=== PATIENT | female | born 1965 | race Two or more races ===

== ENCOUNTER 2025-08-02 04:54 | Inpatient (IN) | payer MEDICAID, OTHER ==
[~2025-08-02] VITALS: Ht 167.6 cm; Wt 66.7 kg
--- NOTE | 2025-08-02 05:19 | ED.PDOC ---
GI ASSESSMENT HPI Comments 60-year-old female with a history of previous bowel obstruction and bowel perforation now complains of dull aching bilateral abdominal pain radiating to bilateral flanks for the last 3 days. Patient reports nausea. No vomiting. Patient reports passing gas but has not had a bowel movement in several days to week. Chief Complaint: Flank Pain Time Seen by MD: 05:08 Allergies: Coded Allergies: NO KNOWN ALLERGIES (Unverified , 08/02/25) Information Source: Patient Mode of Arrival: Ambulatory Timing: Days Duration: Since onset Quality: Aching, Sharp Severity: Moderate, Severe Pain Location: RLQ, LLQ, Periumbilical Associated sign and symptoms: Nausea, Constipation Past Medical History Past Medical History (Other): Previous bowel obstructions Surgical History (Other): Prior intestinal perforation and bowel obstruction Social History Smoker: Non-Smoker Alcohol: Denies ETOH Use Drugs: Marijuana Constitutional: reports: malaise Gastrointestinal: reports: abdominal pain, constipated, nausea All Other Systems: Reviewed and Negative Physical Exam General Appearance: Moderate Distress HEENT: Normal ENT Inspection, Pharynx Normal, TMs Normal Neck: Full Range of Motion, Non-Tender, Normal, Normal Inspection Respiratory: Chest Non-Tender, Lungs Clear, No Accessory Muscle Use, No Respiratory Distress, Normal Breath Sounds Cardiovascular: No Edema, No JVD, No Murmur, No Gallop, Normal Peripheral Pulses, Regular Rate/Rhythm Breast Exam: Deferred Gastrointestinal: Soft, Tenderness Genitalia: Deferred Pelvic: Deferred Rectal: Deferred Extremities: No calf tenderness, Normal capillary refill, Normal inspection, Normal range of motion, Non-tender, No pedal edema Musculoskeletal : Apperance: Normal Neurologic: Alert, copywriter II-XII nml as Tested, No Motor Deficits, Normal Affect, Normal Mood, No Sensory Deficits Cerebellar Function: Normal Reflexes: Normal Skin: Dry, Normal Color, Warm Lymphatic: No Adenopathy Was a procedure done? Was a procedure done?: No GI differential Dx Differential Diagnosis: Diverticular disease, Gastritis/PUD, Gastroenteritis, GI hemorrhage, Dehydration, Kidney Stone, Other X-Ray, Labs, Meds, VS Vital Signs Date Time Temp Pulse Resp B/P (MAP) Pulse Ox O2 Delivery O2 Flow Rate FiO2 08/02/25 04:54 98.1 71 18 129/83 95 98.1 Lab Test 08/02/25 07:06 Range/Units White Blood Count 6.4 4.4-10.8 10^3/uL Red Blood Count 3.83 L 4.0-5.20 10^6/uL Hemoglobin 12.0 L 12.2-16.2 g/dL Hematocrit 35.6 L 36.0-46.0 % Mean Corpuscular Volume 93.0 80.0-100.0 fL Mean Corpuscular Hemoglobin 31.3 28.0-32.0 pg Mean Corpuscular Hemoglobin Concent 33.7 32.0-36.0 g/dL Red Cell Distribution Width 12.4 11.8-14.3 % Platelet Count 236 140-450 10^3/uL Mean Platelet Volume 7.4 6.9-10.8 fL Neutrophils (%) (Auto) 50.1 37.0-80.0 % Lymphocytes (%) (Auto) 34.6 10.0-50.0 % Monocytes (%) (Auto) 9.9 0.0-12.0 % Eosinophils (%) (Auto) 4.7 0.0-7.0 % Basophils (%) (Auto) 0.7 0.0-2.0 % Neutrophils # (Auto) 3.2 1.6-8.6 10 ^3/uL Lymphocytes # (Auto) 2.2 0.4-5.4 10 ^3/uL Monocytes # (Auto) 0.6 0-1.3 10 ^3/uL Eosinophils # (Auto) 0.3 0-0.8 10 ^3/uL Basophils # (Auto) 0 0-0.2 10 ^3/uL Nucleated Red Blood Cells 0.1 % Sodium Level 139 136-145 mmol/L Potassium Level 3.2 L 3.5-5.1 mmol/L Chloride Level 104 98-107 mmol/L Carbon Dioxide Level 25 20-31 mmol/L Anion Gap 10 5-15 Blood Urea Nitrogen 7 L 9-23 mg/dL Creatinine 0.91 0.550-1.02 mg/dL Glomerular Filtration Rate Calc 72 >90 mL/min BUN/Creatinine Ratio 7.7 L 10.0-20.0 Serum Glucose 93 74-106 mg/dL Calcium Level 9.6 8.7-10.4 mg/dL Total Bilirubin 0.6 0.2-1.0 mg/dL Aspartate Amino Transferase (AST) 23 13-40 U/L Alanine Aminotransferase (ALT) 20 7-40 U/L Alkaline Phosphatase 91 46-116 U/L Total Protein 7.4 5.7-8.2 g/dL Albumin 4.5 3.2-4.8 g/dL Lipase 42 12-53 U/L Time of 1ST Reevaluation: 05:19 Reevaluation 1ST: Unchanged Patient Education/Counseling: Diagnosis, Treatment Family Education/Counseling: No Family Present SEPSIS Sepsis Screen Date sepsis recognized/suspect: Aug 02, 2025 Time Sepsis recognized/suspect: 453 Recent Procedure: No On Antibiotic Therapy: No Respiratory Rate >20: No Heart Rate >90: No Temp<36 C (96.8 F) or >38.3 C: No SBP <90 or MAP <65 mmHG: No New Acute Mental Status Change: No Is the patient on CPAP, BIPAP,: No Physician Orders Urinalysis (08/02/25 05:09) Ct Ab Pel Wo Con-No Oral Or Iv (08/02/25 05:09) NS (08/02/25 08:00) Morphine Sulfate Injection (08/02/25 08:00) Ketorolac Injection (Toradol Injection) (08/02/25 08:00) Vital Signs Date Time Temp Pulse Resp B/P (MAP) Pulse Ox O2 Delivery O2 Flow Rate FiO2 08/02/25 04:54 98.1 71 18 129/83 95 98.1 Laboratory Tests Test 08/02/25 07:06 White Blood Count 6.4 10^3/uL (4.4-10.8) Departure 1 Departure Time of Disposition: 07:58 (Patient presented with abdominal pain that was concerning for possible appendicits, gastritis, cholecystitis, colitis, gastroenteritis, sbo, or orther possible surgical emergency. Data: 1. I ordered and reviewed the result of at least 3 labs including a CBC, BMP, and Urinalysis. 2. I independently interpreted the following tests: CT Abdomen and Pelvis is concerning for ureteral colic with hydronephrosis .Risk:This patient has a high risk of morbidity due to further diagnostic testing or treatment and may suffer from an acute abdominal process disorder. Workup reveals intractable abdominal pain, ureteral colic and hydronephrosis and patient should be admitted for further workup. and possible expert consultation. ) Impression: Primary Impression: Ureteral colic Additional Impressions: Hydronephrosis Qualified Codes: N13.2 - Hydronephrosis with renal and ureteral calculous obstruction Intractable abdominal pain Disposition: 09 ADMITTED INPATIENT Admit to: Med Surg Condition: Serious Critical Care Note Critical Care Time?: Yes Critical care comment: Intractable abdominal pain Authorized and Performed by: Elkin Webb MD Total critical care time: Approximately 38 minutes Due to a high probability of clinically significant, life threatening deterioration, the patient required my highest level of preparedness to intervene emergently and I personally spent this critical care time directly and personally managing the patient. This critical care time included obtaining a history; examining the patient; pulse oximetry; ordering and review of studies; arranging urgent treatment with development of a management plan; evaluation of patient's response to treatment; frequent reassessment; and, discussions with other providers. This critical care time was performed to assess and manage the high probability of imminent, life-threatening deterioration that could result in multi-organ failure. It was exclusive of separately billable procedures and treating other patients and teaching time. Please see my other sections and the rest of the note for further information on patient assessment and treatment. Stability Stability form required: No Heart Score Heart Score: Heart Score Response (Comments) Value History N/A 0 EKG N/A 0 Age N/A 0 Risk Factors N/A 0 Troponin N/A 0 Total 0 FELY BLAKELY MD Aug 02, 2025 05:19 ELKIN WEBB MD Aug 02, 2025 07:59
--- NOTE | 2025-08-02 05:46 | DVH ---
Exam: CT CT AB PEL WO CON-NO ORAL OR IV History: flank pain Comparison Study: None Technique: Multidetector spiral CT of the abdomen was performed from lung bases to pubic symphysis. I maging was performed without IV contrast. Axial, coronal and sagittal multiplanar reformats were obta ined from the axial data set by the technologist. Radiation Dose : 1. Abdomen/Pelvis: CTDIvol 5.07 mGy, DLP 254.36 mGy*cm. Findings: Evaluation of solid organs is limited due to lack of intravenous contrast use. Lung Bases: No acute or significant lung base finding. Normal heart size. No pleural or pericardial effusion. Liver: The liver is normal in size. No focal lesions. Gallbladder and Biliary Tree: Unremarkable Spleen: Unremarkable Pancreas: The pancreas is grossly normal in appearance. Adrenal Glands: Unremarkable Kidneys: [id number] left hydroureteronephrosis likely secondary to a distal ureterolith measuri ng a proximally 3 mm, just proximal to the ureterovesicular junction. No evidence of right nephrolith iasis or hydronephrosis. Bladder: Grossly unremarkable for degree of distention. Bowel: The stomach is grossly normal in appearance. Retained colorectal stool. Small bowel and colon are otherwise normal in caliber and distribution. The appendix is normal. Ascites: Absent Lymphadenopathy: No mesenteric, retroperitoneal or periportal lymphadenopathy. Abdominal Wall and Mesentery: Unremarkable. Vasculature: The visualized abdominal aorta is normal in size and caliber. Evaluation of abdominal a nd pelvic vessels is limited due to lack of intravenous contrast. Pelvic Organs: Unremarkable status post hysterectomy. Musculoskeletal: No aggressive focal bony lesions, acute fractures or dislocation. Hardware status po st L3 through S1 transforaminal lumbar interbody fusion. No evidence of hardware complication. IMPRESSION: 1. [id number] left hydroureteronephrosis likely secondary to a partially obstructing distal ure terolith just proximal to the level of the ureterovesicular junction. 2. Retained colorectal stool. Radiation optimization: All CT scans at this facility use at least one of these dose optimization meliton hniques: automated exposure control mA and/or kV adjustment per patient size (includes targeted exam s where dose is matched to clinical indication) or iterative reconstruction.
[2025-08-02 07:26] LABS: Hematocrit 35.6 % (36.0-46.0); Hemoglobin 12.0 g/dL (12.2-16.2); Mean Corpuscular Hemoglobin 31.3 pg (28.0-32.0); Mean Corpuscular Volume 93.0 fL (80.0-100.0); Nucleated Red Blood Cells % 0.1 %
[2025-08-02 07:43] LABS: Alanine Aminotransferase 20 U/L (7-40); Albumin 4.5 g/dL (3.2-4.8); Alkaline Phosphatase 91 U/L (46-116); Anion Gap 10 (5-15); BUN/Creatinine Ratio 7.7 (10.0-20.0); Bilirubin, Total 0.6 mg/dL (0.2-1.0); Calcium 9.6 mg/dL (8.7-10.4); Carbon Dioxide 25 mmol/L (20-31); Chloride 104 mmol/L (98-107); Glucose 93 mg/dL (74-106); Lipase 42 U/L (12-53); Sodium 139 mmol/L (136-145); Total Protein 7.4 g/dL (5.7-8.2)
[2025-08-02 07:44] LABS: Blood Urea Nitrogen 7 mg/dL (9-23); Potassium 3.2 mmol/L (3.5-5.1)
[2025-08-02] MEDS: SODIUM CHLORIDE 0.9% 1,000 ML IV ONE ×3 (08:19→08:30)
[2025-08-02] MEDS: KETOROLAC TROMETH 30 MG/ML 1ML VIAL IV ONE ×2 (08:23→15:15)
[2025-08-02] MEDS: ONDANSETRON HCL 4 MG/2 ML VIAL IV ONE (08:24)
[2025-08-02] MEDS: MORPHINE SULFATE 4 MG/ML SYR/VIAL IV ONE (08:25)
[2025-08-02] MEDS: TAMSULOSIN HYDROCHLORIDE 0.4 MG CAP PO ONE (08:25)
[2025-08-02 08:29] LABS: Urine Protein, UAD Negative (Negative)
[2025-08-02] MEDS ORDERED: ACETAMINOPHEN 325 MG TAB PO PRN (08:30)
[2025-08-02] MEDS ORDERED: ONDANSETRON HCL 4 MG/2 ML VIAL IV PRN ×2 (08:30→15:15)
[2025-08-02] MEDS: LACTULOSE 20Gm/30ML SOLN PO ONE (08:39)
[2025-08-02 08:41] VITALS: PULSE 84; RESP 20; O2SAT 96
[2025-08-02] MEDS ORDERED: LINA145C PO (08:45)
--- NOTE | 2025-08-02 09:06 | DVHINCON2 ---
Date of service: Aug 02, 2025 Reason for Consultation Ureteral colic History of Present Illness 60-year-old female with a history of previous bowel obstruction and bowel perforation now complains of dull aching bilateral abdominal pain radiating to bilateral flanks for the last 3 days. Patient reports nausea. No vomiting. Patient reports passing gas but has not had a bowel movement in several days to week. Chief Complaint: Flank Pain Allergies: Coded Allergies: NO KNOWN ALLERGIES (Unverified , 08/02/25) Information Source: Patient Mode of Arrival: Ambulatory Timing: Days Duration: Since onset Quality: Aching, Sharp Severity: Moderate, Severe Pain Location: RLQ, LLQ, Periumbilical Associated sign and symptoms: Nausea, Constipation Past Surgical History Previous bowel obstructions Surgical History (Other): Prior intestinal perforation and bowel obstruction Allergies: Coded Allergies: NO KNOWN ALLERGIES (Unverified , 08/02/25) Home Meds Reported Medications Linaclotide Base (LINZESS) 145 Mcg Cap, 1 CAP PO DAILY 08/02/25 Current Medications Current Medications Medications (Trade) Dose Ordered Sig/Karen Route PRN Reason Start Time Stop Time Status Last Admin Acetaminophen/ Hydrocodone Bitart (Davis 5/325MG Tab) 1 tab Q4HP PRN PO MODERATE PAIN (4-6 PAIN SCALE) 08/02/25 08:30 Ondansetron HCl (Zofran) 4 mg Q4HP PRN IV NAUSEA / VOMITING 08/02/25 08:30 Docusate Sodium (Colace Capsule) 100 mg BIDPRN PRN PO FOR CONSTIPATION 08/02/25 08:30 Acetaminophen (Tylenol Tablet) 650 mg Q6HP PRN PO PAIN SCALE 1-3 OR TEMP>100.4 08/02/25 08:30 Ketorolac Tromethamine (Toradol Injection) 15 mg Q6HPRN PRN IV SEVERE PAIN (7-10 PAIN SCALE) 08/02/25 08:30 08/07/25 08:29 Tamsulosin HCl (Flomax) 0.4 mg QPM PO 08/02/25 18:00 Alprazolam (Xanax Tablet) 0.5 mg Q8HPRN PRN PO ANXIETY 08/02/25 08:30 Patient Own Medication 1 cap DAILY PO 08/02/25 10:00 Review of Systems Constitutional: reports: malaise Gastrointestinal: reports: abdominal pain, constipated, nausea All Other Systems: Reviewed and Negative Vital Signs Vital Signs Date Time Temp Pulse Resp B/P (MAP) Pulse Ox O2 Delivery O2 Flow Rate FiO2 08/02/25 08:25 84 18 136/94 08/02/25 08:19 98 Room Air 08/02/25 04:54 98.1 98.1 Physical Exam General Appearance: Moderate Distress HEENT: Normal ENT Inspection, Pharynx Normal, TMs Normal Neck: Full Range of Motion, Non-Tender, Normal, Normal Inspection Respiratory: Chest Non-Tender, Lungs Clear, No Accessory Muscle Use, No Respiratory Distress, Normal Breath Sounds Cardiovascular: No Edema, No JVD, No Murmur, No Gallop, Normal Peripheral Pulses, Regular Rate/Rhythm Breast Exam: Deferred Gastrointestinal: Soft, Tenderness Genitalia: Deferred Pelvic: Deferred Rectal: Deferred Extremities: No calf tenderness, Normal capillary refill, Normal inspection, Normal range of motion, Non-tender, No pedal edema Musculoskeletal : Apperance: Normal Neurologic: Alert, manager training II-XII nml as Tested, No Motor Deficits, Normal Affect, Normal Mood, No Sensory Deficits Cerebellar Function: Normal Reflexes: Normal Skin: Dry, Normal Color, Warm Lymphatic: No Adenopathy Labs/Diagnostic Data Labs Test 08/02/25 07:06 08/02/25 06:28 Range/Units White Blood Count 6.4 4.4-10.8 10^3/uL Red Blood Count 3.83 L 4.0-5.20 10^6/uL Hemoglobin 12.0 L 12.2-16.2 g/dL Hematocrit 35.6 L 36.0-46.0 % Mean Corpuscular Volume 93.0 80.0-100.0 fL Mean Corpuscular Hemoglobin 31.3 28.0-32.0 pg Mean Corpuscular Hemoglobin Concent 33.7 32.0-36.0 g/dL Red Cell Distribution Width 12.4 11.8-14.3 % Platelet Count 236 140-450 10^3/uL Mean Platelet Volume 7.4 6.9-10.8 fL Neutrophils (%) (Auto) 50.1 37.0-80.0 % Lymphocytes (%) (Auto) 34.6 10.0-50.0 % Monocytes (%) (Auto) 9.9 0.0-12.0 % Eosinophils (%) (Auto) 4.7 0.0-7.0 % Basophils (%) (Auto) 0.7 0.0-2.0 % Neutrophils # (Auto) 3.2 1.6-8.6 10 ^3/uL Lymphocytes # (Auto) 2.2 0.4-5.4 10 ^3/uL Monocytes # (Auto) 0.6 0-1.3 10 ^3/uL Eosinophils # (Auto) 0.3 0-0.8 10 ^3/uL Basophils # (Auto) 0 0-0.2 10 ^3/uL Nucleated Red Blood Cells 0.1 % Sodium Level 139 136-145 mmol/L Potassium Level 3.2 L 3.5-5.1 mmol/L Chloride Level 104 98-107 mmol/L Carbon Dioxide Level 25 20-31 mmol/L Anion Gap 10 5-15 Blood Urea Nitrogen 7 L 9-23 mg/dL Creatinine 0.91 0.550-1.02 mg/dL Glomerular Filtration Rate Calc 72 >90 mL/min BUN/Creatinine Ratio 7.7 L 10.0-20.0 Serum Glucose 93 74-106 mg/dL Calcium Level 9.6 8.7-10.4 mg/dL Total Bilirubin 0.6 0.2-1.0 mg/dL Aspartate Amino Transferase (AST) 23 13-40 U/L Alanine Aminotransferase (ALT) 20 7-40 U/L Alkaline Phosphatase 91 46-116 U/L Total Protein 7.4 5.7-8.2 g/dL Albumin 4.5 3.2-4.8 g/dL Lipase 42 12-53 U/L Urine Color Colorless Yellow Urine Clarity Clear Clear Urine pH 5.5 5.0-9.0 Urine Specific Metcalfe 1.006 1.001-1.035 Urine Protein Negative Negative Urine Ketones Negative Negative Urine Blood 2+ H Negative /uL Urine Nitrite Negative Negative Urine Bilirubin Negative Negative Urine Urobilinogen Normal Negative mg/dL Urine Leukocyte Esterase Trace Negative /uL Urine RBC 7 0 - 4 /hpf Urine Microscopic WBC 2 0-5 /HPF Urine Squamous Epithelial Cells None seen <5 /hpf Urine Bacteria Few H None Seen /hpf Urine Glucose Normal Normal mg/dL PATIENT: ARABELLA ASHFORD ACCT: [id number] UNIT: [id number] : 1965 LOC: ER ROOM / BED: / AGE / SEX: 60 / F ADM STATUS: REG ER SERVICE [id number] ORDERING PHYSICIAN: FELY BLAKELY MD PROCEDURE(s): ABPL - CT AB PEL WO CON-NO ORAL OR IV REASON: flank pain ORDER NUMBER(s): [id number], ACCESSION NUMBER(s): [id number] Exam: CT CT AB PEL WO CON-NO ORAL OR IV History: flank pain Comparison Study: None Technique: Multidetector spiral CT of the abdomen was performed from lung bases to pubic symphysis. Imaging was performed without IV contrast. Axial, coronal and sagittal multiplanar reformats were obtained from the axial data set by the technologist. Radiation Dose : 1. Abdomen/Pelvis: CTDIvol 5.07 mGy, DLP 254.36 mGy*cm. Findings: Evaluation of solid organs is limited due to lack of intravenous contrast use. Lung Bases: No acute or significant lung base finding. Normal heart size. No pleural or pericardial effusion. Liver: The liver is normal in size. No focal lesions. Gallbladder and Biliary Tree: Unremarkable Spleen: Unremarkable Pancreas: The pancreas is grossly normal in appearance. Adrenal Glands: Unremarkable Kidneys: [id number]-pu-[id number] left hydroureteronephrosis likely secondary to a distal ureterolith measuring a proximally 3 mm, just proximal to the ureterovesicular junction. No evidence of right nephrolithiasis or hydronephrosis. Bladder: Grossly unremarkable for degree of distention. Bowel: The stomach is grossly normal in appearance. Retained colorectal stool. S mall bowel and colon are otherwise normal in caliber and distribution. The appendix is normal. Ascites: Absent Lymphadenopathy: No mesenteric, retroperitoneal or periportal lymphadenopathy. Abdominal Wall and Mesentery: Unremarkable. Vasculature: The visualized abdominal aorta is normal in size and caliber. Evaluation of abdominal and pelvic vessels is limited due to lack of intravenous contrast. Pelvic Organs: Unremarkable status post hysterectomy. Musculoskeletal: No aggressive focal bony lesions, acute fractures or dislocation. Hardware status post L3 through S1 transforaminal lumbar interbody fusion. No evidence of hardware complication. IMPRESSION: 1. [id number] left hydroureteronephrosis likely secondary to a partially obstructing distal ureterolith just proximal to the level of the ureterovesicular junction. 2. Retained colorectal stool. Radiation optimization: All CT scans at this facility use at least one of these dose optimization techniques: automated exposure control mA and/or kV adjustment per patient size (includes targeted exams where dose is matched to clinical indication) or iterative reconstruction. ATED BY: NARENDRA MARTÍNEZ MD DICTATED DATE/TIME: 08/02/25542 SIGNED BY: NARENDRA MARTÍNEZ MD SIGNED DATE/TIME: 08/02/25542 CC: Assessment Left hydronephrosis Left distal ureteral stone Left flank pain Plan/Recommendation Left ESWL, possible stent placement Plan discussed with: Patient CELIO HAYDEN MD Aug 02, 2025 09:06
[2025-08-02 09:30] VITALS: BP 134/75; PULSE 60; TEMP 97.8; O2SAT 99
--- NOTE | 2025-08-02 09:37 | DVHHP2 ---
History of Present Illness Reason for Visit: Abdominal pain History of Present Illness Elana Dee is a 60-year-old female with past medial history of anxiety, bipolar, and schizophrenia, who came to the hospital for abdominal pain. Patient states she has been experiencing bilateral lower quadrant abdominal pain for about 4-5 days and it is not going to her back. She also states that she has not had a bowel movement in [address] scan show partial obstructing kidney stone on the left side and constipation. Patient has a history of SBO that required surgical intervention prior. Psych: Anxiety, Bipolar, Schizophrenia Past Surgical History: Hysterectomy, Other (SBO that required surgical intervention, back, neck, eye, nose, tubal , multiple surgeries on right foot, ) Smoke: No ALCOHOL: none Drugs: Marijuana Lives: with Family Domestic Violence: Neg Review of Systems Constitutional: No: Fever, Chills, Sweats, Weakness, Malaise, Other Eyes: No: Pain, Vision change, Conjunctivae inflammation, Eyelid inflammation, Other, Redness ENT: No: Ear pain, Ear discharge, Nose pain, Nose discharge, Nose congestion, Mouth pain, Mouth swelling, Throat pain, Throat swelling, Other Respiratory: No: Cough, Dry, Shortness of breath, SOB with excertion, Wheezing, Hemoptysis, Pleuritic Pain, Sputum, Wheezing, Other Cardiovascular: No: Chest Pain, Palpitations, Orthopnea, Paroxysmal Noc. Dyspnea, Edema, Lt Headedness, Other Gastrointestinal: Nausea, Abdominal Pain, Constipation; No: Vomiting, Diarrhea, Melena, Hematochezia, Other Genitourinary: No Dysuria, No Frequency, No Incontinence, No Hematuria, No Retention, No Other Musculoskeletal: back pain (left flank); No: other, neck pain, shoulder pain, arm pain, hand pain, leg pain, foot pain Skin: No: Rash, Lesions, Jaundice, Bruising, Other Neurological: No: Weakness, Numbness, Incoordination, Change in speech, Confusion, Seizures, Other Allergies: Coded Allergies: NO KNOWN ALLERGIES (Unverified , 08/02/25) Medications Current Medications Medications Dose Ordered Sig/Karen Route Start Time Stop Time Status Last Admin Dose Admin Acetaminophen/ Hydrocodone Bitart 1 tab Q4HP PRN PO 08/02/25 08:30 UNV Ondansetron HCl 4 mg Q4HP PRN IV 08/02/25 08:30 UNV Docusate Sodium 100 mg BIDPRN PRN PO 08/02/25 08:30 UNV Acetaminophen 650 mg Q6HP PRN PO 08/02/25 08:30 UNV Ketorolac Tromethamine 15 mg Q6HPRN PRN IV 08/02/25 08:30 08/07/25 08:29 UNV Tamsulosin HCl 0.4 mg QPM PO 08/02/25 18:00 UNV Alprazolam 0.5 mg Q8HPRN PRN PO 08/02/25 08:30 UNV Patient Own Medication 1 cap DAILY PO 08/02/25 10:00 UNV Exam Vital Signs Vital Signs Date Time Temp Pulse Resp B/P (MAP) Pulse Ox O2 Delivery O2 Flow Rate FiO2 08/02/25 08:25 84 18 136/94 08/02/25 08:19 98 Room Air 08/02/25 04:54 98.1 98.1 General Appearance: Alert, Oriented X3, Cooperative, moderate distress HEENT: Atraumatic, Mucous membr. moist/pink Respiratory: Clear to auscultation, Normal air movement Cardiovascular: Regular rate, Normal S1, Normal S2, No murmurs Abdominal: Normal bowel sounds, Soft, Other (Tenderness to bilateral lower quadrants) Extremities: No clubbing, No cyanosis, No edema Skin: No rashes, No breakdown, No significant lesion Neuro: Normal gait, Strength at 5/5 X4 ext Psych/Mental Status: Other (Anxious) Labs/Xrays Labs Test 08/02/25 07:06 08/02/25 06:28 Range/Units White Blood Count 6.4 4.4-10.8 10^3/uL Red Blood Count 3.83 L 4.0-5.20 10^6/uL Hemoglobin 12.0 L 12.2-16.2 g/dL Hematocrit 35.6 L 36.0-46.0 % Mean Corpuscular Volume 93.0 80.0-100.0 fL Mean Corpuscular Hemoglobin 31.3 28.0-32.0 pg Mean Corpuscular Hemoglobin Concent 33.7 32.0-36.0 g/dL Red Cell Distribution Width 12.4 11.8-14.3 % Platelet Count 236 140-450 10^3/uL Mean Platelet Volume 7.4 6.9-10.8 fL Neutrophils (%) (Auto) 50.1 37.0-80.0 % Lymphocytes (%) (Auto) 34.6 10.0-50.0 % Monocytes (%) (Auto) 9.9 0.0-12.0 % Eosinophils (%) (Auto) 4.7 0.0-7.0 % Basophils (%) (Auto) 0.7 0.0-2.0 % Neutrophils # (Auto) 3.2 1.6-8.6 10 ^3/uL Lymphocytes # (Auto) 2.2 0.4-5.4 10 ^3/uL Monocytes # (Auto) 0.6 0-1.3 10 ^3/uL Eosinophils # (Auto) 0.3 0-0.8 10 ^3/uL Basophils # (Auto) 0 0-0.2 10 ^3/uL Nucleated Red Blood Cells 0.1 % Sodium Level 139 136-145 mmol/L Potassium Level 3.2 L 3.5-5.1 mmol/L Chloride Level 104 98-107 mmol/L Carbon Dioxide Level 25 20-31 mmol/L Anion Gap 10 5-15 Blood Urea Nitrogen 7 L 9-23 mg/dL Creatinine 0.91 0.550-1.02 mg/dL Glomerular Filtration Rate Calc 72 >90 mL/min BUN/Creatinine Ratio 7.7 L 10.0-20.0 Serum Glucose 93 74-106 mg/dL Calcium Level 9.6 8.7-10.4 mg/dL Total Bilirubin 0.6 0.2-1.0 mg/dL Aspartate Amino Transferase (AST) 23 13-40 U/L Alanine Aminotransferase (ALT) 20 7-40 U/L Alkaline Phosphatase 91 46-116 U/L Total Protein 7.4 5.7-8.2 g/dL Albumin 4.5 3.2-4.8 g/dL Lipase 42 12-53 U/L Urine Color Colorless Yellow Urine Clarity Clear Clear Urine pH 5.5 5.0-9.0 Urine Specific [place] 1.006 1.001-1.035 Urine Protein Negative Negative Urine Ketones Negative Negative Urine Blood 2+ H Negative /uL Urine Nitrite Negative Negative Urine Bilirubin Negative Negative Urine Urobilinogen Normal Negative mg/dL Urine Leukocyte Esterase Trace Negative /uL Urine RBC 7 0 - 4 /hpf Urine Microscopic WBC 2 0-5 /HPF Urine Squamous Epithelial Cells None seen <5 /hpf Urine Bacteria Few H None Seen /hpf Urine Glucose Normal Normal mg/dL Exam: CT CT AB PEL WO CON-NO ORAL OR IV Findings: Evaluation of solid organs is limited due to lack of intravenous contrast use. Lung Bases: No acute or significant lung base finding. Normal heart size. No pleural or pericardial effusion. Liver: The liver is normal in size. No focal lesions. Gallbladder and Biliary Tree: Unremarkable Spleen: Unremarkable Pancreas: The pancreas is grossly normal in appearance. Adrenal Glands: Unremarkable Kidneys: [id number] left hydroureteronephrosis likely secondary to a distal ureterolith measuring a proximally 3 mm, just proximal to the ureterovesicular junction. No evidence of right nephrolithiasis or hydronephrosis. Bladder: Grossly unremarkable for degree of distention. Bowel: The stomach is grossly normal in appearance. Retained colorectal stool. Small bowel and colon are otherwise normal in caliber and distribution. The appendix is normal. Ascites: Absent Lymphadenopathy: No mesenteric, retroperitoneal or periportal lymphadenopathy. Abdominal Wall and Mesentery: Unremarkable. Vasculature: The visualized abdominal aorta is normal in size and caliber. Evaluation of abdominal and pelvic vessels is limited due to lack of intravenous contrast. Pelvic Organs: Unremarkable status post hysterectomy. Musculoskeletal: No aggressive focal bony lesions, acute fractures or dislocation. Hardware status post L3 through S1 transforaminal lumbar interbody fusion. No evidence of hardware complication. IMPRESSION: 1. [id number] left hydroureteronephrosis likely secondary to a partially obstructing distal ureterolith just proximal to the level of the ureterovesicular junction. 2. Retained colorectal stool. SEPSIS Sepsis Screen Date sepsis recognized/suspect: Aug 02, 2025 Time Sepsis recognized/suspect: 0454 Recent Procedure: No On Antibiotic Therapy: No Respiratory Rate >20: No Heart Rate >90: No Temp<36 C (96.8 F) or >38.3 C: No SBP <90 or MAP <65 mmHG: No New Acute Mental Status Change: No Is the patient on CPAP, BIPAP,: No Physician Orders Ct Ab Pel Wo Con-No Oral Or Iv (08/02/25 05:09) Sodium Chloride 0.9% (08/02/25 08:00) * Urology Consult (08/02/25 07:53) Admit (08/02/25 08:23) Code Status (08/02/25 08:23) Hydrocodone-Acet 5/325mg Tab ([place] 5/32 (08/02/25 08:30) Ondansetron Hcl (Zofran) (08/02/25 08:30) Docusate Sodium Capsule (Colace Capsule) (08/02/25 08:30) Complete Blood Count (08/03/25 04:00) Comprehensive Metabolic Panel (08/03/25 04:00) Condition: Serious (08/02/25 08:23) Acetaminophen Tablet (Tylenol Tablet) (08/02/25 08:30) Ketorolac Injection (Toradol Injection) (08/02/25 08:30) Tamsulosin Hydrochloride (Flomax) (08/02/25 18:00) Sodium Chloride 0.9% (08/02/25 08:30) Sodium Chloride 0.9% (08/02/25 08:30) Alprazolam Tablet (Xanax Tablet) (08/02/25 08:30) (Nf) Linaclotide Base (Linzess) (08/02/25 10:00) Strain All Urine For Stones (08/02/25 08:45) Vital Signs Date Time Temp Pulse Resp B/P (MAP) Pulse Ox O2 Delivery O2 Flow Rate FiO2 08/02/25 08:25 84 18 136/94 08/02/25 08:19 84 18 98 Room Air 08/02/25 08:19 84 18 136/94 (108) 98 08/02/25 04:54 98.1 71 18 129/83 95 98.1 Laboratory Tests Test 08/02/25 07:06 White Blood Count 6.4 10^3/uL (4.4-10.8) Medications Medications Dose Ordered Sig/Karen Route Start Time Stop Time Status Last Admin Dose Admin Ketorolac Tromethamine 15 mg ONCE ONCE IV 08/02/25 08:00 08/02/25 08:03 DC 08/02/25 08:23 15 MG Lactulose 60 ml ONCE ONCE PO 08/02/25 08:30 08/02/25 08:31 DC 08/02/25 08:39 60 ML Morphine Sulfate 4 mg ONCE ONCE IV 08/02/25 08:00 08/02/25 08:03 DC 08/02/25 08:25 4 MG Ondansetron HCl 4 mg ONCE ONCE IV 08/02/25 08:00 08/02/25 08:03 DC 08/02/25 08:24 4 MG Sodium Chloride 1,000 ml @ 1,000 mls/hr Q1H ONCE IV 08/02/25 08:00 08/02/25 08:59 08/02/25 08:19 1,000 MLS/HR Tamsulosin HCl 0.4 mg ONCE ONCE PO 08/02/25 08:00 08/02/25 08:03 DC 08/02/25 08:25 0.4 MG Assessment/Plan Assessment/Plan Assessment: Hydroureteronephrosis, Severe constipation, Intractable abdominal pain, Bipolar, Anxiety, Schizophrenia, Plan: Admit to Med-Surg, Urology consult, IV hydration, Start Flomax, Pain management, PO Lactulose, if unsuccessful will try suppository, Strain all urine for stones, Home medications reconciled, Plan discussed with: Patient My Orders Orders - BEN NEWMAN Procedure Category Date Status Time Admit ADMIT 08/02/25 Transmitted 08:23 Code Status CODE 08/02/25 Transmitted 08:23 Hydrocodone-Acet PHA 08/02/25 Logged 5/325mg Tab ([place] 08:30 Ondansetron Hcl PHA 08/02/25 Logged (Zofran) 08:30 Docusate Sodium PHA 08/02/25 Logged Capsule (Colace 08:30 Complete Blood Count LAB 08/03/25 Verified 04:00 Comprehensive LAB 08/03/25 Verified Metabolic Panel 04:00 Condition: Serious FLORA 08/02/25 In Process 08:23 Acetaminophen Tablet PHA 08/02/25 Logged (Tylenol Tablet) 08:30 Ketorolac Injection PHA 08/02/25 Logged (Toradol Injection) 08:30 Tamsulosin PHA 08/02/25 Logged Hydrochloride (Flomax) 18:00 Sodium Chloride 0.9% PHA 08/02/25 Logged 08:30 Sodium Chloride 0.9% PHA 08/02/25 Logged 08:30 Alprazolam Tablet PHA 08/02/25 Logged (Xanax Tablet) 08:30 (Nf) Linaclotide Base PHA 08/02/25 Logged (Linzess) 10:00 Strain All Urine For FLORA 08/02/25 In Process Stones 08:45 Date of Service: Aug 02, 2025 Billing Provider: BEN NEWMAN Common Visit Codes: [id number] INP/OBS CARE (MOD) BEN NEWMAN Aug 02, 2025 09:37
[2025-08-02] MEDS: ALPRAZolam 0.5 MG TAB PO PRN (09:39)
[2025-08-02] MEDS: LINZESS 145 MG PO SCH (10:00)
[2025-08-02] MEDS ORDERED: CLON0.5T3 PO ×2 (10:42→10:45)
[2025-08-02] MEDS ORDERED: ZIPR80CA43 PO (10:43)
[2025-08-02 12:16] LABS: INR 0.98 (0.9-1.15); Partial Thromboplastin Time 26.5 SEC (24.5-34.5); Prothrombin Time 10.4 sec (9.3-11.8)
[2025-08-02] MEDS: CIPROFLOXACIN 400MG/200ML 200 ML IV ONE (12:26)
--- NOTE | 2025-08-02 13:04 | DVH ---
INDICATION: Recommend for Procedure TECHNIQUE: Frontal view of the chest. COMPARISON: None FINDINGS: . The heart and mediastinal contours are grossly unremarkable. There is no evidence of pleural disea se. The lungs are clear. The bony structures of the chest are intact without fracture. IMPRESSION: 1. No evidence of acute disease.
[2025-08-02] MEDS ORDERED: MIDAZOLAM HCL 2MG/2ML 2ml VIAL (1mg/ml) ONE (13:59)
[2025-08-02] MEDS ORDERED: fentaNYL CITRATE 100 MCG/2 ML VL ONE (13:59)
[2025-08-02] MEDS ORDERED: ONDANSETRON HCL 4 MG/2 ML VIAL ONE (14:00)
[2025-08-02] MEDS: IOHEXOL 300 MG/ML 100ML BOTTLE IJ ONE (14:16)
[2025-08-02 14:35] VITALS: O2SAT 97
[2025-08-02] MEDS ORDERED: PROPOFOL 10 MG/ML 20 ML IV ONE (14:45)
--- NOTE | 2025-08-02 14:51 | DVHNC2 ---
Procedure - OPERATIVE REPORT Pre-op. Diagnosis: left flank pain moderate left hydronephrosis left distal ureteral calculus, 3 mm Post-op. Diagnosis: Same as pre-op diagnosis Operation: cystoscopy with left retrograde pyelogram cystoscopy with left ureteral stent placement Anesthesia: general Indications: Patient with symptomatic left distal ureteral calculus with reported 9/10 pain The indications, risks, alternative and benefits of lithotripsy with possible stent placement were discussed with the patient. All questions were encouraged and answered and she elected to proceed Details of Procedure: patient was taken to the operating room and underwent general anesthesia. She was placed in dorsal lithotomy position with the area of the genitalia prepped and draped in usual sterile manner. Twenty-one Tajik rigid cystoscope was utilized to inspect the urethra in the bladder. There was no evidence of any stones, tumors or foreign body in the bladder. The ureteric orifices were seen in normal position bilaterally. The left ureteric orifice was cannulated with s ix Tajik open-ended catheter and retrograde pyelogram was performed. The calcification noted on CT scan were felt to be phlebolith and not a ureteral stone. No distal ureteral filling defect were identifiable. Left renal hydronephrosis was mild. Given patient's clinical symptoms, I elected to place a stent for management of her pain and hydronephrosis. Guidewire was then placed and a five Tajik by 24 cm polaris loop ureteral stent was properly positioned. Bladder was decompressed. Fluoroscopy was performed again to confirm that no distal ureteral stone was identifiable. Patient was awakened and taken to recovery room in stable condition Specimens: Complications: Findings: Notes: we will plan for stent removal and possible ureteroscopy if indicated in 2-3 weeks' time CELIO HAYDEN MD Aug 02, 2025 14:51
--- NOTE | 2025-08-02 15:04 | DVHPN2 ---
Reviewed: Care Plan, H&P, Labs, Medications, Previous Orders, Radiology Changes from previous H/P or p: No Changes Eyes: No Pain, No Vision change, No Conjunctivae inflammation, No Eyelid inflammation, No Other, No Redness ENT: No Ear pain, No Ear discharge, No Nose pain, No Nose discharge, No Nose congestion, No Mouth pain, No Mouth swelling, No Throat pain, No Throat swelling, No Other Cardiovascular: No Chest Pain, No Palpitations, No Orthopnea, No Paroxysmal Noc. Dyspnea, No Edema, No Lt Headedness, No Other Respiratory: No Cough, No Dry, No Shortness of breath, No SOB with excertion, No Wheezing, No Hemoptysis, No Pleuritic Pain, No Sputum, No Other Gastrointestinal: Nausea; No Vomiting; Abdominal Pain; No Diarrhea; C onstipation; No Melena, No Hematochezia, No Other Genitourinary: No Dysuria, No Frequency, No Incontinence, No Hematuria, No Retention, No Other Musculoskeletal: No other, No neck pain, No shoulder pain, No arm pain; back pain (left flank); No hand pain, No leg pain, No foot pain Skin: No Rash, No Lesions, No Jaundice, No Bruising, No Other Objective Vitals Vital Signs Date Time Temp Pulse Resp B/P (MAP) Pulse Ox O2 Delivery O2 Flow Rate FiO2 08/02/25 09:30 97.8 60 134/75 (94) 99 97.8 08/02/25 08:41 20 Room Air* 0 21 Medications Current Medications Medications Dose Ordered Sig/Karen Route Start Time Stop Time Status Last Admin Dose Admin Acetaminophen/ Hydrocodone Bitart 1 tab Q4HP PRN PO 08/02/25 08:30 Ondansetron HCl 4 mg Q4HP PRN IV 08/02/25 08:30 Docusate Sodium 100 mg BIDPRN PRN PO 08/02/25 08:30 Acetaminophen 650 mg Q6HP PRN PO 08/02/25 08:30 Ketorolac Tromethamine 15 mg Q6HPRN PRN IV 08/02/25 08:30 08/07/25 08:29 Tamsulosin HCl 0.4 mg QPM PO 08/02/25 18:00 Alprazolam 0.5 mg Q8HPRN PRN PO 08/02/25 08:30 08/02/25 09:39 0.5 MG Patient Own Medication 1 cap DAILY PO 08/02/25 10:00 Laboratory Results Laboratory Tests 08/02/25 07:06 Chemistry Test 08/02/25 07:06 Albumin 4.5 g/dL (3.2-4.8) Calcium Level 9.6 mg/dL (8.7-10.4) Total Protein 7.4 g/dL (5.7-8.2) Coagulation Test 08/02/25 11:35 Prothrombin Time 10.4 sec (9.3-11.8) Prothrombin Time INR 0.98 (0.9-1.15) Activated Partial Thromboplast Time 26.5 SEC (24.5-34.5) Lipid panel Test 08/02/25 07:06 Lipase 42 U/L (12-53) LFT Test 08/02/25 07:06 Alanine Aminotransferase (ALT) 20 U/L (7-40) Alkaline Phosphatase 91 U/L (46-116) Aspartate Amino Transferase (AST) 23 U/L (13-40) Total Bilirubin 0.6 mg/dL (0.2-1.0) Urinalysis Test 08/02/25 06:28 Urine Color Colorless (Yellow) Urine Clarity Clear (Clear) Urine pH 5.5 (5.0-9.0) Urine Specific [place] 1.006 (1.001-1.035) Urine Protein Negative (Negative) Urine Ketones Negative (Negative) Urine Blood 2+ /uL (Negative) H Urine Nitrite Negative (Negative) Urine Bilirubin Negative (Negative) Urine Urobilinogen Normal mg/dL (Negative) Urine Leukocyte Esterase Trace /uL (Negative) Urine RBC 7 /hpf (0 - 4) Urine Microscopic WBC 2 /HPF (0-5) Urine Squamous Epithelial Cells None seen /hpf (<5) Urine Bacteria Few /hpf (None Seen) H Urine Glucose Normal mg/dL (Normal) Labs and/or images reviewed: Labs reviewed by me, Image(s) reviewed by me Assessment/Plan Assessment/Plan Hydroureteronephrosis, 3 mm left distal ureteral stone status post ureteral stent by Dr. Tinsley Severe constipation, Intractable abdominal pain, Bipolar, Anxiety, Schizophrenia, Time spent 55 minutes Plan discussed with: Patient Date of Service: Aug 02, 2025 Billing Provider: ELIDA WILSON MD Common Visit Codes: [id number] INP/OBS CARE(HIGH) ELIDA WILSON MD Aug 02, 2025 15:04
[2025-08-02] MEDS: HYDROmorphone HCL 2 MG/ML VL/or syr IV PRN (15:06)
[2025-08-02] MEDS: MIDAZOLAM HCL 2MG/2ML 2ml VIAL (1mg/ml) IV ONE (15:06)
[2025-08-02] MEDS: MIDAZOLAM HCL 2MG/2ML 2ml VIAL (1mg/ml) ONE (15:07)
[2025-08-02] MEDS: HYDROmorphone HCL 2 MG/ML VL/or syr ONE (15:07)
[2025-08-02] MEDS ORDERED: MORPHINE SULFATE 4 MG/ML SYR/VIAL IV PRN (15:15)
[2025-08-02] MEDS ORDERED: HYDROmorphone HCL 2 MG/ML VL/or syr IV PRN (15:15)
[2025-08-02] MEDS ORDERED: MIDAZOLAM HCL 2MG/2ML 2ml VIAL (1mg/ml) IV PRN (15:15)
[2025-08-02] MEDS ORDERED: KETOROLAC TROMETH 30 MG/ML 1ML VIAL IV PRN (15:15)
[2025-08-02] MEDS ORDERED: hydrALAZINE HCL 20 MG/ML VL IV PRN (15:15)
[2025-08-02] MEDS: DOCUSATE SOD 100 MG CAP PO PRN (16:26)
[2025-08-02] MEDS: KETOROLAC TROMETH 30 MG/ML 1ML VIAL IV PRN ×2 (16:27→20:05)
[2025-08-02] MEDS: TAMSULOSIN HYDROCHLORIDE 0.4 MG CAP PO SCH (17:12)
[2025-08-02] MEDS: HYDROcodone-ACET 5/325MG TAB PO PRN (18:10)
[2025-08-02 20:00] VITALS: PULSE 89; RESP 18; O2SAT 93
[2025-08-02 21:00] VITALS: BP 112/78; PULSE 69; RESP 16; TEMP 98.1; O2SAT 95
[2025-08-03] VITALS (7 sets, daily range): BP systolic 108–136; BP diastolic 75–87; PULSE 55–62; RESP 16–18; TEMP 97.5–98.9; O2SAT 95–99
[2025-08-03 05:34] LABS: Hematocrit 28.7 % (36.0-46.0); Hemoglobin 9.9 g/dL (12.2-16.2); Mean Corpuscular Hemoglobin 31.4 pg (28.0-32.0); Mean Corpuscular Volume 90.9 fL (80.0-100.0); Nucleated Red Blood Cells % 0.0 %
[2025-08-03 05:57] LABS: Alanine Aminotransferase 18 U/L (7-40); Albumin 3.9 g/dL (3.2-4.8); Alkaline Phosphatase 79 U/L (46-116); Calcium 9.3 mg/dL (8.7-10.4)
[2025-08-03 05:58] LABS: Anion Gap 11 (5-15); BUN/Creatinine Ratio 11.6 (10.0-20.0); Bilirubin, Total 0.5 mg/dL (0.2-1.0); Blood Urea Nitrogen 10 mg/dL (9-23); Carbon Dioxide 23 mmol/L (20-31); Chloride 106 mmol/L (98-107); Glucose 104 mg/dL (74-106); Potassium 3.3 mmol/L (3.5-5.1); Sodium 140 mmol/L (136-145); Total Protein 6.3 g/dL (5.7-8.2)
--- NOTE | 2025-08-03 09:46 | DVHPN2 ---
Reviewed: Care Plan, H&P, Labs, Medications, Previous Orders, Radiology Changes from previous H/P or p: No Changes Eyes: No Pain, No Vision change, No Conjunctivae inflammation, No Eyelid inflammation, No Other, No Redness ENT: No Ear pain, No Ear discharge, No Nose pain, No Nose discharge, No Nose congestion, No Mouth pain, No Mouth swelling, No Throat pain, No Throat swelling, No Other Cardiovascular: No Chest Pain, No Palpitations, No Orthopnea, No Paroxysmal Noc. Dyspnea, No Edema, No Lt Headedness, No Other Respiratory: No Cough, No Dry, No Shortness of breath, No SOB with excertion, No Wheezing, No Hemoptysis, No Pleuritic Pain, No Sputum, No Other Gastrointestinal: Nausea; No Vomiting; Abdominal Pain; No Diarrhea; C onstipation; No Melena, No Hematochezia, No Other Genitourinary: No Dysuria, No Frequency, No Incontinence, No Hematuria, No Retention, No Other Musculoskeletal: No other, No neck pain, No shoulder pain, No arm pain; back pain (left flank); No hand pain, No leg pain, No foot pain Skin: No Rash, No Lesions, No Jaundice, No Bruising, No Other Objective Vitals Vital Signs Date Time Temp Pulse Resp B/P (MAP) Pulse Ox O2 Delivery O2 Flow Rate FiO2 08/03/25 08:42 98.2 55 18 136/82 (100) 99 98.2 08/03/25 08:00 Room Air* 0 21 Intake/Output Intake and Output 08/03/25 07:00 Intake Total 600 ml Balance 600 ml Intake Oral 500 ml IV Total 100 ml # Voids 4 Medications Current Medications Medications Dose Ordered Sig/Karen Route Start Time Stop Time Status Last Admin Dose Admin Acetaminophen/ Hydrocodone Bitart 1 tab Q4HP PRN PO 08/02/25 08:30 08/02/25 23:26 1 TAB Ondansetron HCl 4 mg Q4HP PRN IV 08/02/25 08:30 Docusate Sodium 100 mg BIDPRN PRN PO 08/02/25 08:30 08/02/25 16:26 100 MG Acetaminophen 650 mg Q6HP PRN PO 08/02/25 08:30 Tamsulosin HCl 0.4 mg QPM PO 08/02/25 18:00 08/02/25 17:12 0.4 MG Alprazolam 0.5 mg Q8HPRN PRN PO 08/02/25 08:30 08/03/25 05:14 0.5 MG Patient Own Medication 1 cap DAILY PO 08/02/25 10:00 Ketorolac Tromethamine 30 mg Q6HPRN PRN IV 08/02/25 17:00 08/07/25 16:59 08/03/25 08:03 30 MG Laboratory Results Laboratory Tests 08/03/25 05:02 Chemistry Test 08/03/25 05:02 Albumin 3.9 g/dL (3.2-4.8) Calcium Level 9.3 mg/dL (8.7-10.4) Total Protein 6.3 g/dL (5.7-8.2) Coagulation Test 08/02/25 11:35 Prothrombin Time 10.4 sec (9.3-11.8) Prothrombin Time INR 0.98 (0.9-1.15) Activated Partial Thromboplast Time 26.5 SEC (24.5-34.5) LFT Test 08/03/25 05:02 Alanine Aminotransferase (ALT) 18 U/L (7-40) Alkaline Phosphatase 79 U/L (46-116) Aspartate Amino Transferase (AST) 19 U/L (13-40) Total Bilirubin 0.5 mg/dL (0.2-1.0) Urinalysis Test 08/02/25 06:28 Urine Color Colorless (Yellow) Urine Clarity Clear (Clear) Urine pH 5.5 (5.0-9.0) Urine Specific [place] 1.006 (1.001-1.035) Urine Protein Negative (Negative) Urine Ketones Negative (Negative) Urine Blood 2+ /uL (Negative) H Urine Nitrite Negative (Negative) Urine Bilirubin Negative (Negative) Urine Urobilinogen Normal mg/dL (Negative) Urine Leukocyte Esterase Trace /uL (Negative) Urine RBC 7 /hpf (0 - 4) Urine Microscopic WBC 2 /HPF (0-5) Urine Squamous Epithelial Cells None seen /hpf (<5) Urine Bacteria Few /hpf (None Seen) H Urine Glucose Normal mg/dL (Normal) Labs and/or images reviewed: Labs reviewed by me, Image(s) reviewed by me Assessment/Plan Assessment/Plan Hydroureteronephrosis, 3 mm left distal ureteral stone status post ureteral stent by Dr. Tinsley Severe constipation, Intractable abdominal pain, Bipolar, Anxiety, Schizophrenia, Chronic constipation: Lactulose p.o., GI consult for Dr. Malu Guillen History of bowel rupture status post surgery five years ago RN Regina at bedside Time spent 55 minutes Plan discussed with: Patient My Orders Orders - ELIDA WILSON MD Procedure Category Date Status Time Ketorolac Injection PHA 08/02/25 In Process (Toradol Injection) 17:00 Date of Service: Aug 03, 2025 Billing Provider: ELIDA WILSON MD Common Visit Codes: [id number] INP/OBS CARE(HIGH) ELIDA WILSON MD Aug 03, 2025 09:46
[2025-08-03] MEDS ORDERED: ARTIFICIAL TEARS 15ml EACHEYE PRN (10:00)
[2025-08-03] MEDS: LACTULOSE 20Gm/30ML SOLN PO ONE (10:29)
[2025-08-03] MEDS: OXYCODONE W/ ACETAMINOPHEN 5/325MG TABLET PO PRN (10:37)
--- NOTE | 2025-08-03 14:13 | DVH ---
Indication: constipation Technique: XY KUB ABDOMEN SINGLE VIEWXY Comparison: None FINDINGS/IMPRESSION: Left ureteral stent. Lumbar fusion hardware. Large volume stool throughout the entirety of the colon which is distended with fecal material. No evidence of free intraperitoneal air.
--- NOTE | 2025-08-03 14:43 | DVHINCON2 ---
GI Consult Consult Note GI consult note Date of Consultation: 08/03/2025 Chief Complaint: Constipation Referring Physician: Dr. Vasile Wilson H&P: 60-year-old female admitted with complains of abdominal pain. Patient has abdominal distention. Patient has history of constipation. Last bowel movement 12 days ago. Patient has history of small-bowel obstruction with gangrene five years ago. Patient is status post cystoscopy for hydronephrosis. Patient has a colonoscopy in past which was within normal limits Past Medical History: Anxiety, Bipolar, Schizophrenia Past Surgical History: Hysterectomy, Other (SBO that required surgical intervention, back, neck, eye, nose, tubal , multiple surgeries on right foot, ) Social History: NO smoking, drinking ETOH Positive marijuana Family History: Noncontributory Review of Systems: Constitutional: no fever, chill, weight loss HEENT: no eye pain, no hearing loss, no oral lesion, no scleral icterus Heart: no chest pain, no chest pressure Lung: no cough, no dyspnea with exertion Abdomen: see HPI Physical exam: General: NAD, AAOX3 Chest: lung pratt clear to auscultation Heart: RRR, no murmur Abdomen: Moderate-distended, no tenderness to palpation, +BS Labs: Labs Test 08/03/25 05:02 08/02/25 11:35 08/02/25 07:06 08/02/25 06:28 Range/Units White Blood Count 7.3 4.4-10.8 10^3/uL Red Blood Count 3.16 L 4.0-5.20 10^6/uL Hemoglobin 9.9 #L 12.2-16.2 g/dL Hematocrit 28.7 #L 36.0-46.0 % Mean Corpuscular Volume 90.9 80.0-100.0 fL Mean Corpuscular Hemoglobin 31.4 28.0-32.0 pg Mean Corpuscular Hemoglobin Concent 34.6 32.0-36.0 g/dL Red Cell Distribution Width 12.1 11.8-14.3 % Platelet Count 215 140-450 10^3/uL Mean Platelet Volume 7.8 6.9-10.8 fL Neutrophils (%) (Auto) 73.7 37.0-80.0 % Lymphocytes (%) (Auto) 18.1 10.0-50.0 % Monocytes (%) (Auto) 8.0 0.0-12.0 % Eosinophils (%) (Auto) 0.0 0.0-7.0 % Basophils (%) (Auto) 0.2 0.0-2.0 % Neutrophils # (Auto) 5.4 1.6-8.6 10 ^3/uL Lymphocytes # (Auto) 1.3 0.4-5.4 10 ^3/uL Monocytes # (Auto) 0.6 0-1.3 10 ^3/uL Eosinophils # (Auto) 0 0-0.8 10 ^3/uL Basophils # (Auto) 0 0-0.2 10 ^3/uL Nucleated Red Blood Cells 0.0 % Sodium Level 140 136-145 mmol/L Potassium Level 3.3 L 3.5-5.1 mmol/L Chloride Level 106 98-107 mmol/L Carbon Dioxide Level 23 20-31 mmol/L Anion Gap 11 5-15 Blood Urea Nitrogen 10 9-23 mg/dL Creatinine 0.86 0.550-1.02 mg/dL Glomerular Filtration Rate Calc 77 >90 mL/min BUN/Creatinine Ratio 11.6 10.0-20.0 Serum Glucose 104 74-106 mg/dL Calcium Level 9.3 8.7-10.4 mg/dL Total Bilirubin 0.5 0.2-1.0 mg/dL Aspartate Amino Transferase (AST) 19 13-40 U/L Alanine Aminotransferase (ALT) 18 7-40 U/L Alkaline Phosphatase 79 46-116 U/L Total Protein 6.3 5.7-8.2 g/dL Albumin 3.9 3.2-4.8 g/dL Prothrombin Time 10.4 9.3-11.8 sec Prothrombin Time INR 0.98 0.9-1.15 Activated Partial Thromboplast Time 26.5 24.5-34.5 SEC Lipase 42 12-53 U/L Urine Color Colorless Yellow Urine Clarity Clear Clear Urine pH 5.5 5.0-9.0 Urine Specific [place] 1.006 1.001-1.035 Urine Protein Negative Negative Urine Ketones Negative Negative Urine Blood 2+ H Negative /uL Urine Nitrite Negative Negative Urine Bilirubin Negative Negative Urine Urobilinogen Normal Negative mg/dL Urine Leukocyte Esterase Trace Negative /uL Urine RBC 7 0 - 4 /hpf Urine Microscopic WBC 2 0-5 /HPF Urine Squamous Epithelial Cells None seen <5 /hpf Urine Bacteria Few H None Seen /hpf Urine Glucose Normal Normal mg/dL Imaging: CT abdomen pelvis IMPRESSION: 1. [id number] left hydroureteronephrosis likely secondary to a partially obstructing distal ureterolith just proximal to the level of the ureterovesicular junction. 2. Retained colorectal stool. Abdominal x-ray FINDINGS/IMPRESSION: Left ureteral stent. Lumbar fusion hardware. Large volume stool throughout the entirety of the colon which is distended with fecal material. No evidence of free intraperitoneal air. Assessment: Abdominal pain Constipation [place] ureteral nephrosis status post cystoscopy History of small-bowel obstructions Plan: -discussed with Dr. Wilmer Otoole, Fleet's enema and lactulose Ice chips We will continue to monitor patient Plan discussed with patient and RN at bedside Thank you for this consult Date of Service: Aug 03, 2025 Billing Provider: MERARI WILSON Common Visit Codes: CONSULT ONLY Consultation Codes: [id number] CONSULT <60MIN MERARI WILSON Aug 03, 2025 14:43
[2025-08-03] MEDS: FLEET ENEMA(ADULT) 135 ML PR ONE (15:07)
[2025-08-03] MEDS: POLYETHYLENE GLYCOL 17 GM PWDR PO ONE (15:07)
[2025-08-03] MEDS: clonazePAM 0.5 MG TAB PO PRN (21:15)
[2025-08-03] MEDS: LACTULOSE 20Gm/30ML SOLN PO SCH (21:22)
[2025-08-04 05:00] VITALS: BP 92/58; PULSE 67; RESP 18; TEMP 98; O2SAT 98
[2025-08-04 09:00] VITALS: BP 95/61; PULSE 64; RESP 17; TEMP 99; O2SAT 96
[2025-08-04] MEDS ORDERED: PERCOT PO (09:30)
[2025-08-04] MEDS: MULTIPLE VITAMIN TAB PO SCH (09:33)
--- NOTE | 2025-08-04 09:33 | DVHPN2 ---
Reviewed: Care Plan, H&P, Labs, Medications, Previous Orders, Radiology Changes from previous H/P or p: No Changes Eyes: No Pain, No Vision change, No Conjunctivae inflammation, No Eyelid inflammation, No Other, No Redness ENT: No Ear pain, No Ear discharge, No Nose pain, No Nose discharge, No Nose congestion, No Mouth pain, No Mouth swelling, No Throat pain, No Throat swelling, No Other Cardiovascular: No Chest Pain, No Palpitations, No Orthopnea, No Paroxysmal Noc. Dyspnea, No Edema, No Lt Headedness, No Other Respiratory: No Cough, No Dry, No Shortness of breath, No SOB with excertion, No Wheezing, No Hemoptysis, No Pleuritic Pain, No Sputum, No Other Gastrointestinal: Nausea; No Vomiting; Abdominal Pain; No Diarrhea; C onstipation; No Melena, No Hematochezia, No Other Genitourinary: No Dysuria, No Frequency, No Incontinence, No Hematuria, No Retention, No Other Musculoskeletal: No other, No neck pain, No shoulder pain, No arm pain; back pain (left flank); No hand pain, No leg pain, No foot pain Skin: No Rash, No Lesions, No Jaundice, No Bruising, No Other Objective Vitals Vital Signs Date Time Temp Pulse Resp B/P (MAP) Pulse Ox O2 Delivery O2 Flow Rate FiO2 08/04/25 05:00 98.0 67 18 92/58 (69) 98 98.0 08/03/25 20:00 Room Air* 0 21 Intake/Output Intake and Output 08/04/25 07:00 Intake Total 600 ml Balance 600 ml Intake Oral 600 ml # Voids 12 # Bowel Movements 1 Medications Current Medications Medications Dose Ordered Sig/Karen Route Start Time Stop Time Status Last Admin Dose Admin Acetaminophen/ Hydrocodone Bitart 1 tab Q4HP PRN PO 08/02/25 08:30 08/02/25 23:26 1 TAB Ondansetron HCl 4 mg Q4HP PRN IV 08/02/25 08:30 Docusate Sodium 100 mg BIDPRN PRN PO 08/02/25 08:30 08/02/25 16:26 100 MG Acetaminophen 650 mg Q6HP PRN PO 08/02/25 08:30 Tamsulosin HCl 0.4 mg QPM PO 08/02/25 18:00 08/03/25 17:58 0.4 MG Patient Own Medication 1 cap DAILY PO 08/02/25 10:00 Ketorolac Tromethamine 30 mg Q6HPRN PRN IV 08/02/25 17:00 08/07/25 16:59 08/03/25 21:15 30 MG Oxycodone/ Acetaminophen 1 tab Q6HP PRN PO 08/03/25 09:45 08/04/25 02:54 1 TAB Artificial Tears 2 drop Q6HP PRN EACHEYE 08/03/25 10:30 Lactulose 30 ml BID PO 08/03/25 22:00 Clonazepam 1 mg Q8HP PRN PO 08/03/25 16:15 08/03/25 21:15 1 MG Ziprasidone 80 mg DAILY PO 08/04/25 10:00 Multivitamins 1 tab DAILY PO 08/04/25 10:00 Laboratory Results Laboratory Tests 08/03/25 05:02 Urinalysis Test 08/02/25 06:28 Urine Color Colorless (Yellow) Urine Clarity Clear (Clear) Urine pH 5.5 (5.0-9.0) Urine Specific [place] 1.006 (1.001-1.035) Urine Protein Negative (Negative) Urine Ketones Negative (Negative) Urine Blood 2+ /uL (Negative) H Urine Nitrite Negative (Negative) Urine Bilirubin Negative (Negative) Urine Urobilinogen Normal mg/dL (Negative) Urine Leukocyte Esterase Trace /uL (Negative) Urine RBC 7 /hpf (0 - 4) Urine Microscopic WBC 2 /HPF (0-5) Urine Squamous Epithelial Cells None seen /hpf (<5) Urine Bacteria Few /hpf (None Seen) H Urine Glucose Normal mg/dL (Normal) Labs and/or images reviewed: Labs reviewed by me, Image(s) reviewed by me Assessment/Plan Assessment/Plan Hydroureteronephrosis, 3 mm left distal ureteral stone status post ureteral stent by Dr. Tinsley Severe constipation, Intractable abdominal pain, Bipolar, Anxiety, Schizophrenia, Chronic constipation: Lactulose p.o., GI consult for Dr. Malu Guillen History of bowel rupture status post surgery five years ago RN Carmen at bedside Time spent 55 minutes Patient feels better and wants to go home Plan discussed with: Patient My Orders Orders - ELIDA WILSON MD Procedure Category Date Status Time Drug Screen LAB 08/03/25 Logged 09:43 Oxycodone W/ Acet PHA 08/03/25 In Process 5/325mg Tab (Percocet 09:45 * Gi [facility] Sc[facility] Tech CONS 08/03/25 Transmitted 09:43 Artificial Tear 15ml PHA 08/03/25 In Process Opthalmic (Tears Na 10:30 Clonazepam Tablet PHA 08/03/25 In Process (Klonopin Tablet) 16:15 Multiple Vitamin PHA 08/04/25 In Process Tablet (Mvi Tab) 10:00 Ziprasidone PHA 08/04/25 In Process Hydrochloride (Geodon) 10:00 Date of Service: Aug 04, 2025 Billing Provider: ELIDA WILSON MD Common Visit Codes: [id number] INP/OBS CARE(HIGH) ELIDA WILSON MD Aug 04, 2025 09:33
[2025-08-04] MEDS: ZIPRASIDONE HCL 80 MG CAP PO SCH (09:34)
--- NOTE | 2025-08-04 09:37 | DVHDS2 ---
Discharge Summary Date of Admission Aug 02, 2025 at 08:23 Date of Discharge: Aug 04, 2025 Admitting Diagnosis Left flank pain Wounds: Left ureteral stent placement Labs/Diagnostic Data: Laboratory Results Test 08/03/25 05:02 08/02/25 11:35 08/02/25 07:06 08/02/25 06:28 White Blood Count 7.3 10^3/uL (4.4-10.8) Red Blood Count 3.16 10^6/uL (4.0-5.20) Hemoglobin 9.9 g/dL (12.2-16.2) Hematocrit 28.7 % (36.0-46.0) Mean Corpuscular Volume 90.9 fL (80.0-100.0) Mean Corpuscular Hemoglobin 31.4 pg (28.0-32.0) Mean Corpuscular Hemoglobin Concent 34.6 g/dL (32.0-36.0) Red Cell Distribution Width 12.1 % (11.8-14.3) Platelet Count 215 10^3/uL (140-450) Mean Platelet Volume 7.8 fL (6.9-10.8) Neutrophils (%) (Auto) 73.7 % (37.0-80.0) Lymphocytes (%) (Auto) 18.1 % (10.0-50.0) Monocytes (%) (Auto) 8.0 % (0.0-12.0) Eosinophils (%) (Auto) 0.0 % (0.0-7.0) Basophils (%) (Auto) 0.2 % (0.0-2.0) Neutrophils # (Auto) 5.4 10 ^3/uL (1.6-8.6) Lymphocytes # (Auto) 1.3 10 ^3/uL (0.4-5.4) Monocytes # (Auto) 0.6 10 ^3/uL (0-1.3) Eosinophils # (Auto) 0 10 ^3/uL (0-0.8) Basophils # (Auto) 0 10 ^3/uL (0-0.2) Nucleated Red Blood Cells 0.0 % Sodium Level 140 mmol/L (136-145) Potassium Level 3.3 mmol/L (3.5-5.1) Chloride Level 106 mmol/L (98-107) Carbon Dioxide Level 23 mmol/L (20-31) Anion Gap 11 (5-15) Blood Urea Nitrogen 10 mg/dL (9-23) Creatinine 0.86 mg/dL (0.550-1.02) Glomerular Filtration Rate Calc 77 mL/min (>90) BUN/Creatinine Ratio 11.6 (10.0-20.0) Serum Glucose 104 mg/dL (74-106) Calcium Level 9.3 mg/dL (8.7-10.4) Total Bilirubin 0.5 mg/dL (0.2-1.0) Aspartate Amino Transferase (AST) 19 U/L (13-40) Alanine Aminotransferase (ALT) 18 U/L (7-40) Alkaline Phosphatase 79 U/L (46-116) Total Protein 6.3 g/dL (5.7-8.2) Albumin 3.9 g/dL (3.2-4.8) Prothrombin Time 10.4 sec (9.3-11.8) Prothrombin Time INR 0.98 (0.9-1.15) Activated Partial Thromboplast Time 26.5 SEC (24.5-34.5) Lipase 42 U/L (12-53) Urine Color Colorless (Yellow) Urine Clarity Clear (Clear) Urine pH 5.5 (5.0-9.0) Urine Specific [place] 1.006 (1.001-1.035) Urine Protein Negative (Negative) Urine Ketones Negative (Negative) Urine Blood 2+ /uL (Negative) Urine Nitrite Negative (Negative) Urine Bilirubin Negative (Negative) Urine Urobilinogen Normal mg/dL (Negative) Urine Leukocyte Esterase Trace /uL (Negative) Urine RBC 7 /hpf (0 - 4) Urine Microscopic WBC 2 /HPF (0-5) Urine Squamous Epithelial Cells None seen /hpf (<5) Urine Bacteria Few /hpf (None Seen) Urine Glucose Normal mg/dL (Normal) Other Laboratory Tests 08/03/25 05:02 Brief Hx & Hospital Course: 60-year-old female came in with left flank pain found to have 3 mm left distal ureteral stone underwent ureteral stent placement by Dr. Cee history of bipolar anxiety schizophrenia history of bowel rupture status post surgery five years ago and she was given lactulose for constipation with a which she had relief being discharged home on Percocet she will follow up with Dr. Tinsley. Consults/Reason for consult Urology Dr. Tinsley Operations or Procedures Left ureteral stent placement Condition at Discharge: Fair Final Diagnosis/Problems List Hydroureteronephrosis, 3 mm left distal ureteral stone status post ureteral stent by Dr. Tinsley Severe constipation, Intractable abdominal pain, Bipolar, Anxiety, Schizophrenia, Chronic constipation: Lactulose p.o., GI consult for Dr. Malu Guillen History of bowel rupture status post surgery five years ago Discharge Disposition: Home Discharge Instruct/Medications Diet: Regular Activity: Light activity Follow Up/Referral: Follow up with the primary Dr Follow up with the Urology Dr. Cee in two weeks Medications: Percocet Transmitted to pharmacy Scheduled Clonazepam (KlonoPIN TABLET), 1 TAB PO TID, (Reported) Linaclotide Base (Linzess), 1 CAP PO DAILY, (Reported) Ziprasidone Hydrochloride (Geodon), 1 CAP PO DAILY, (Reported) Scheduled PRN Oxycodone W/ Acetaminophen (Percocet 5/325MG), 1 TAB PO QID PRN 39 (Time taken for discharge summary 39 minutes) Discharge Statement: "Patient was advised to return to the ER or call 911 if any headaches, dizziness, shortness of breath, chest pain, abdominal pain, bleeding, fevers, or worsening of medical condition. Patient was counseled about treatment plan, medications, possible side effects, patientverbalized understanding. All questions were answered to the best of my ability. This discharge took greater then 30 minutes in planning, reviewing documentation, counseling the patient, and discussing with other team members." ASSESSMENT ASSESSMENT Hospital Course Uneventful Assessment Hydroureteronephrosis, 3 mm left distal ureteral stone status post ureteral stent by Dr. Tinsley Severe constipation, Intractable abdominal pain, Bipolar, Anxiety, Schizophrenia, Chronic constipation: Lactulose p.o., GI consult for Dr. Malu Guillen History of bowel rupture status post surgery five years ago Date of Service: Aug 04, 2025 Billing Provider: ELIDA WILSON MD Common Visit Codes: [id number] DISCH DAY >30min ELIDA WILSON MD Aug 04, 2025 09:37
[2025-08-04] MEDS: ARTIFICIAL TEARS 15ml EACHEYE PRN (09:42)
--- NOTE | 2025-08-04 10:32 | DVHPN2 ---
Progress Note - Dictate Date Seen: Aug 04, 2025 Medical Necessity Reason Pt with a Central, PICC or Fol: No Subjective No new complaints Patient had a large bowel movement followed by another small bowel movement Abdominal discomfort has improved vital signs Vital Sign Date Time Temp Pulse Resp B/P (MAP) Pulse Ox O2 Delivery O2 Flow Rate FiO2 08/04/25 09:00 99.0 64 17 95/61 (72) 96 99.0 08/03/25 20:00 Room Air* 0 21 Total Intake and Output 08/03/25 08/03/25 08/04/25 15:00 23:00 07:00 Intake Total 0 ml 600 ml Balance 0 ml 600 ml medications Current Medications Medications Dose Ordered Sig/Karen Route Start Time Stop Time Status Last Admin Dose Admin Acetaminophen/ Hydrocodone Bitart 1 tab Q4HP PRN PO 08/02/25 08:30 08/02/25 23:26 1 TAB Ondansetron HCl 4 mg Q4HP PRN IV 08/02/25 08:30 Docusate Sodium 100 mg BIDPRN PRN PO 08/02/25 08:30 08/02/25 16:26 100 MG Acetaminophen 650 mg Q6HP PRN PO 08/02/25 08:30 Tamsulosin HCl 0.4 mg QPM PO 08/02/25 18:00 08/03/25 17:58 0.4 MG Patient Own Medication 1 cap DAILY PO 08/02/25 10:00 Ketorolac Tromethamine 30 mg Q6HPRN PRN IV 08/02/25 17:00 08/07/25 16:59 08/03/25 21:15 30 MG Oxycodone/ Acetaminophen 1 tab Q6HP PRN PO 08/03/25 09:45 08/04/25 09:34 1 TAB Artificial Tears 2 drop Q6HP PRN EACHEYE 08/03/25 10:30 08/04/25 09:42 2 DROP Lactulose 30 ml BID PO 08/03/25 22:00 08/04/25 09:33 30 ML Clonazepam 1 mg Q8HP PRN PO 08/03/25 16:15 08/04/25 09:34 1 MG Ziprasidone 80 mg DAILY PO 08/04/25 10:00 08/04/25 09:34 80 MG Multivitamins 1 tab DAILY PO 08/04/25 10:00 08/04/25 09:33 1 TAB objective General: NAD, AAOX3 Chest: lung pratt clear to auscultation Heart: RRR, no murmur Abdomen: Moderate-distended, no tenderness to palpation, +BS laboratory and microbiology Laboratory Tests 08/03/25 05:02 Test 08/03/25 05:02 Range/Units Serum Glucose 104 74-106 mg/dL Problems(with codes): (1) Constipation (2) Hydroureteronephrosis (3) Intractable abdominal pain (4) Hydronephrosis (5) Abdominal pain Prognosis Plan Advance diet as tolerated Maintained on stool softeners and MiraLax as needed Outpatient follow up with GI Services Discharge planning is in progress Plan discussed with: Other (Skyla Phillips) MADIE PATEL MD Aug 04, 2025 10:32
[2025-08-04] MEDS: POTASSIUM CHL 20 Meq TABLET PO ONE (11:32)
== END 2025-08-04 15:50 | disposition home or self-care (01) | DRG 465 ==
LOC: ER 04:54 → OVERFLOW 08:23 → EAST 15:41
PROVIDERS: ADMIT Family Medicine; ATTEND Family Medicine
PROC: 0T778DZ Dilation of Left Ureter with Intraluminal Device, Via Natural or Artificial Opening Endoscopic (ICD-10-PCS; 2025-08-02)
PROC: BT1F1ZZ Fluoroscopy of Left Kidney, Ureter and Bladder using Low Osmolar Contrast (ICD-10-PCS; principal; 2025-08-02 13:56)
DX: N13.2 Hydronephrosis with renal and ureteral calculous obstruction (principal); R71.0 Precipitous drop in hematocrit; F20.9 Schizophrenia, unspecified; F31.9 Bipolar disorder, unspecified; F41.9 Anxiety disorder, unspecified; Z90.710 Acquired absence of both cervix and uterus; K59.09 Other constipation
CPT/HCPCS: 36415; 71045; 74018; 74176; 80053; 81001; 83690; 85025; 85610; 85730; 86850; 86900; 86901; 96361; 96374; 96375; 99291; A4344; G0378; J1100; J1885; J2250; J2405; J2704

== ENCOUNTER 2025-08-11 02:15 | Emergency (ER) | payer MEDICAID ==
[~2025-08-11] VITALS: Ht 165.1 cm; Wt 61.3 kg
[~2025-08-11 02:15] MED LIST: CLON0.5T3 PO; LINA145C PO; PERCOT PO; ZIPR80CA43 PO
--- NOTE | 2025-08-11 02:39 | ED.PDOC ---
General HPI Comments 60-year-old female who came to ER for abdominal pain. Patient was discharged here last August 04, diagnosed with 1. Hydroureteronephrosis, 2. 3 mm left distal ureteral stone status post ureteral stent by Dr. Tinsley, 3. Severe constipation, 4. Intractable abdominal pain, 5. Bipolar, 6. Anxiety, 7. Schizophrenia, 8. Chronic constipation: 9. History of bowel rupture status post surgery five years ago. Patient states for the past 2 days, she has been experiencing progressively worsening lower abdominal pain, associated with dysuria and urinary frequency. Chief Complaint: Abdominal Pain Time Seen by MD: 02:38 Reviewed notes: Nurses Notes Allergies: Coded Allergies: NO KNOWN ALLERGIES (Unverified , 08/02/25) Home Meds Active Scripts Gabapentin (Once-Daily) (Gabapentin) 300 Mg Tab, 300 MG PO Q6HP PRN, #60 TAB Prov:FELY BLAKEYL MD 08/11/25 Cefdinir (Cefdinir) 300 Mg Cap, 1 CAP PO BID for 10 Days, #20 CAP Prov:FELY BLAKELY MD 08/11/25 Oxycodone W/ Acetaminophen (Percocet 5/325MG) 1 Tab Tb, 1 TAB PO QID PRN, #30 TAB Prov:ELIDA WILSON MD 08/04/25 Reported Medications Clonazepam (KlonoPIN TABLET) 0.5 Mg Tb, 1 TAB PO TID, #90 TAB 08/02/25 Ziprasidone Hydrochloride (Geodon) 80 Mg Cap, 1 CAP PO DAILY, #60 CAP 1 Refill 08/02/25 Linaclotide Base (LINZESS) 145 Mcg Cap, 1 CAP PO DAILY 08/02/25 Information Source: Patient Mode of Arrival: Ambulatory Severity: Moderate Timing: Days Duration: Intermittent Has not urinated for: Minutes Onset: Spontaneous Symptoms: Dysuria, Frequency History of: Recent post-op Location: Suprapubic associated signs and symptoms: Abdominal Pain, Dysuria, Frequency Past Medical History PAST MEDICAL HISTORY: Anxiety, Kidney Stones, Schizophrenia Past Medical History (Other): Bipolar Surgical History (Other): Ureteral Stent [employer] History: Denies all [employer] Hx Family History Family History: Reviewed,noncontributory to illness Social History Smoker: Non-Smoker Alcohol: Denies ETOH Use Drugs: Marijuana Lives In: Home Constitutional: denies: chills, diaphoresis, fatigue, fever, malaise, sweats, weakness, others EENTM: denies: blurred vision, double vision, ear bleeding, ear discharge, ear drainage, ear pain, ear ringing, eye pain, eye redness, hearing loss, mouth pain, mouth swelling, nasal discharge, nose bleeding, nose congestion, nose pain, photophobia, tearing, throat pain, throat swelling, voice changes, others Respiratory: denies: cough, hemoptysis, orthopnea, SOB at rest, shortness of breath, SOB with excertion, stridor, wheezing, others Cardiovascular: denies: chest pain, dizzy spells, diaphoresis, Dyspnea on exertion, edema, irregular heart beat, left arm pain, lightheadedness, palpitations, PND, syncope, others Gastrointestinal: reports: abdominal pain; denies: abdomen distended, blood streaked bowels, constipated, diarrhea, dysphagia, difficulty swallowing, hematemesis, melena, nausea, poor appetite, poor fluid intake, rectal bleeding, rectal pain, vomiting, others Genitourinary: reports: burning, dysuria, frequency; denies: abnormal vagina bleeding, dyspareunia, flank pain, hematuria, incontinence, pain, , vagina discharge, urgency, others Neurological: denies: dizziness, fainting, headache, left sided numbness, left sided weakness, numbness, paresthesia, pre-existing deficit, right sided numbness, right sided weakness, seizure, speech problems, tingling, tremors, weakness, others Musculoskeletal: denies: back pain, gout, joint pain, joint swelling, muscle pain, muscle stiffness, neck pain, others Integumetry: denies: bruises, change in color, change in hair/nails, dryness, laceration, lesions, lumps, rash, wounds, others Allergic/Immunocompromised: denies: Difficulty Healing, Frequent Infections, Hives, Itching, others Hematologic/Lymphatic: denies: anemia, blood clots, easy bleeding, easy bruising, swollen glands, others Endocrine: denies: excessive hunger, excessive sweating, excessive thirst, excessive urination, flushing, intolerance to cold, intolerance to heat, unexplained weight gain, unexplained weight loss, others Psychiatric: denies: anxiety, bipolar disorder, depression, hopeless, panic dis order, schizophrenia, sleepless, suicidal, others Physical Exam General Appearance: No Apparent Distress, Normal HEENT: Normal ENT Inspection, Pharynx Normal, TMs Normal Neck: Full Range of Motion, Non-Tender, Normal, Normal Inspection Respiratory: Chest Non-Tender, Lungs Clear, No Accessory Muscle Use, No Respiratory Distress, Normal Breath Sounds Cardiovascular: No Edema, No JVD, No Murmur, No Gallop, Normal Peripheral Pulses, Regular Rate/Rhythm Breast Exam: Deferred Gastrointestinal: No Organomegaly, No Pulsatile Mass, Normal Bowel Sounds, Soft, Suprapubic, Tenderness Genitalia: Deferred Pelvic: Deferred Rectal: Deferred Extremities: No calf tenderness, Normal capillary refill, Normal inspection, Normal range of motion, Non-tender, No pedal edema Musculoskeletal : Apperance: Normal Neurologic: Alert, bunghole borer II-XII nml as Tested, No Motor Deficits, Normal Affect, Normal Mood, No Sensory Deficits Cerebellar Function: Normal Reflexes: Normal Skin: Dry, Normal Color, Warm Lymphatic: No Adenopathy Was a procedure done? Was a procedure done?: No Differential Diagnosis Kidney stone (Female): Musculoskeletal pain, Pancreatitis, Pyelonephritis, Strain, Urinary obstruction, Urolithiasis Kidney stone (Male): N/A Penile/Scrotal: N/A Urinary Problem (Male): N/A Urinary Problem (Female): Post-op complication, Pyelonephritis, Urinary retention, Urolithiasis, UTI X-Ray, Labs, Meds, VS Vital Signs Date Time Temp Pulse Resp B/P (MAP) Pulse Ox O2 Delivery O2 Flow Rate FiO2 08/11/25 04:47 65 18 97 Room Air* 0 21 08/11/25 04:02 65 18 110/75 08/11/25 03:55 98.3 65 18 110/75 (87) 97 98.3 08/11/25 02:16 98.0 75 16 133/79 96 98.0 Lab Test 08/11/25 02:50 08/11/25 02:40 Range/Units Urine Color Pending Urine Clarity Pending Urine pH Pending Urine Specific [place] Pending Urine Protein Pending Urine Ketones Pending Urine Blood Pending Urine Nitrite Pending Urine Bilirubin Pending Urine Urobilinogen Pending Urine Leukocyte Esterase Pending Urine RBC Pending Urine Microscopic WBC Pending Urine Squamous Epithelial Cells Pending Urine Bacteria Pending Urine Glucose Pending White Blood Count 7.4 4.4-10.8 10^3/uL Red Blood Count 3.51 L 4.0-5.20 10^6/uL Hemoglobin 10.9 L 12.2-16.2 g/dL Hematocrit 32.5 L 36.0-46.0 % Mean Corpuscular Volume 92.6 80.0-100.0 fL Mean Corpuscular Hemoglobin 31.0 28.0-32.0 pg Mean Corpuscular Hemoglobin Concent 33.5 32.0-36.0 g/dL Red Cell Distribution Width 12.0 11.8-14.3 % Platelet Count 326 140-450 10^3/uL Mean Platelet Volume 7.3 6.9-10.8 fL Neutrophils (%) (Auto) 33.4 L 37.0-80.0 % Lymphocytes (%) (Auto) 51.4 H 10.0-50.0 % Monocytes (%) (Auto) 7.8 0.0-12.0 % Eosinophils (%) (Auto) 6.3 0.0-7.0 % Basophils (%) (Auto) 1.1 0.0-2.0 % Neutrophils # (Auto) 2.5 1.6-8.6 10 ^3/uL Lymphocytes # (Auto) 3.8 0.4-5.4 10 ^3/uL Monocytes # (Auto) 0.6 0-1.3 10 ^3/uL Eosinophils # (Auto) 0.5 0-0.8 10 ^3/uL Basophils # (Auto) 0.1 0-0.2 10 ^3/uL Nucleated Red Blood Cells 0.3 % Sodium Level 138 136-145 mmol/L Potassium Level 4.5 3.5-5.1 mmol/L Chloride Level 102 98-107 mmol/L Carbon Dioxide Level 27 20-31 mmol/L Anion Gap 9 5-15 Blood Urea Nitrogen 8 L 9-23 mg/dL Creatinine 0.87 0.550-1.02 mg/dL Glomerular Filtration Rate Calc 76 >90 mL/min BUN/Creatinine Ratio 9.2 L 10.0-20.0 Serum Glucose 91 74-106 mg/dL Calcium Level 9.4 8.7-10.4 mg/dL Total Bilirubin 0.4 0.2-1.0 mg/dL Aspartate Amino Transferase (AST) 24 13-40 U/L Alanine Aminotransferase (ALT) 19 7-40 U/L Alkaline Phosphatase 89 46-116 U/L Total Protein 6.8 5.7-8.2 g/dL Albumin 4.1 3.2-4.8 g/dL Lipase 35 12-53 U/L Current Medications Medications (Trade) Dose Ordered Sig/Karen Route Start Time Stop Time Status Last Admin Ondansetron HCl (Zofran) 4 mg ONCE ONCE IV 08/11/25 02:45 08/11/25 02:46 DC 08/11/25 04:02 Sodium Chloride 1,000 ml @ 1,000 mls/hr Q1H ONCE IVB 08/11/25 02:45 08/11/25 03:44 DC 08/11/25 04:02 Morphine Sulfate 4 mg ONCE ONCE IV 08/11/25 02:45 08/11/25 02:46 DC 08/11/25 04:02 Ceftriaxone Sodium 50 ml @ 100 mls/hr ONCE ONCE IV 08/11/25 04:30 08/11/25 04:59 08/11/25 04:41 Exam: CT CT AB PEL WO CON-NO ORAL OR IV History: bilateral flank pain Comparison Study: CT CT AB PEL WO CON-NO ORAL OR IV on DOS: 08/02/25 Technique: Multidetector spiral CT of the abdomen was performed from lung bases to pubic symphysis. Imaging was performed without IV contrast. Axial, coronal and sagittal multiplanar reformats were obtained from the axial data set by the technologist. Radiation Dose : 1. Abdomen/Pelvis: CTDIvol 6.05 mGy, DLP 344.89 mGy*cm. Findings: Evaluation of solid organs is limited due to lack of intravenous contrast use. Lung Bases: No acute or significant lung base finding. Normal heart size. No pleural or pericardial effusion. Liver: The liver is normal in size. No focal lesions. Gallbladder and Biliary Tree: Unremarkable Spleen: Unremarkable Pancreas: The pancreas is grossly normal in appearance. Adrenal Glands: Unremarkable Kidneys: Mild left hydronephrosis. Left ureteral stent noted. Bladder: Grossly unremarkable for degree of distention. Bowel: Small sliding-type hiatal hernia. The stomach is grossly normal in appearance. Retained colorectal stool. Small bowel and colon are otherwise normal in caliber and distribution. The appendix is not visualized; however, no secondary findings of acute appendicitis identified. Ascites: Absent Lymphadenopathy: No mesenteric, retroperitoneal or periportal lymphadenopathy. Abdominal Wall and Mesentery: Unremarkable. Vasculature: The visualized abdominal aorta is normal in size and caliber. Evaluation of abdominal and pelvic vessels is limited due to lack of intravenous contrast. Pelvic Organs: Unremarkable status post hysterectomy. Musculoskeletal: No aggressive focal bony lesions, acute fractures or dislocation. Hardware status post L3 through S1 transforaminal lumbar interbody fusion without evidence of complication. IMPRESSION: 1. Mild left hydronephrosis with left ureteral stent in situ. 2. Small sliding-type hiatal hernia. 3. Retained colorectal stool. Radiation optimization: All CT scans at this facility use at least one of these dose optimization techniques: automated exposure control mA and/or kV adjustment per patient size (includes targeted exams where dose is matched to clinical indication) or iterative reconstruction. Time of 1ST Reevaluation: 02:35 Reevaluation 1ST: Unchanged Patient Education/Counseling: Diagnosis, Treatment Family Education/Counseling: Diagnosis, Treatment SEPSIS Sepsis Screen Date sepsis recognized/suspect: Aug 11, 2025 Time Sepsis recognized/suspect: 219 Recent Procedure: Yes On Antibiotic Therapy: No Respiratory Rate >20: No Heart Rate >90: No Temp<36 C (96.8 F) or >38.3 C: No SBP <90 or MAP <65 mmHG: No New Acute Mental Status Change: No Is the patient on CPAP, BIPAP,: No Physician Orders Urinalysis (08/11/25 02:32) Ct Ab Pel Wo Con-No Oral Or Iv (08/11/25 02:32) Ceftriaxone 1gm/50ml (Rocephin) (08/11/25 04:30) Vital Signs Date Time Temp Pulse Resp B/P (MAP) Pulse Ox O2 Delivery O2 Flow Rate FiO2 08/11/25 04:47 65 18 97 Room Air* 0 21 08/11/25 04:02 65 18 110/75 08/11/25 03:55 98.3 65 18 110/75 (87) 97 98.3 08/11/25 02:16 98.0 75 16 133/79 96 98.0 Laboratory Tests Test 08/11/25 02:40 White Blood Count 7.4 10^3/uL (4.4-10.8) Medications Medications Dose Ordered Sig/Karen Route Start Time Stop Time Status Last Admin Dose Admin Ceftriaxone Sodium 50 ml @ 100 mls/hr ONCE ONCE IV 08/11/25 04:30 08/11/25 04:59 08/11/25 04:41 Morphine Sulfate 4 mg ONCE ONCE IV 08/11/25 02:45 08/11/25 02:46 DC 08/11/25 04:02 Ondansetron HCl 4 mg ONCE ONCE IV 08/11/25 02:45 08/11/25 02:46 DC 08/11/25 04:02 Sodium Chloride 1,000 ml @ 1,000 mls/hr Q1H ONCE IVB 08/11/25 02:45 08/11/25 03:44 DC 08/11/25 04:02 Departure 1 Departure Time of Disposition: 04:00 Impression: Primary Impression: Ureteral stent present Additional Impression: Abdominal pain Disposition: HOME / SELF CARE / HOMELESS Condition: Stable e-Prescriptions Gabapentin (Once-Daily) (Gabapentin) 300 Mg Tab 300 MG PO Q6HP PRN, #60 TAB Prov: FELY BLAKELY MD 08/11/25 Cefdinir (Cefdinir) 300 Mg Cap 1 CAP PO BID for 10 Days, #20 CAP Prov: FELY BLAKELY MD 08/11/25 Discharged With: Self Critical Care Note Critical Care Time?: No Stability Stability form required: No Heart Score Heart Score: Heart Score Response (Comments) Value History N/A 0 EKG N/A 0 Age N/A 0 Risk Factors N/A 0 Troponin N/A 0 Total 0 I personally scribed for FELY BLAKELY MD ([email or web address]) on 08/11/25 at 02:39. Electronically submitted by Ramirez Lay ([email or web address]). I personally scribed for FELY BLAKELY MD ([email or web address]) on 08/11/25 at 04:00. Electronically submitted by Ramirez Lay ([email or web address]). FELY BLAKELY MD Aug 11, 2025 02:39
[2025-08-11 02:47] LABS: Hematocrit 32.5 % (36.0-46.0); Hemoglobin 10.9 g/dL (12.2-16.2); Mean Corpuscular Hemoglobin 31.0 pg (28.0-32.0); Mean Corpuscular Volume 92.6 fL (80.0-100.0); Nucleated Red Blood Cells % 0.3 %
[2025-08-11 03:07] LABS: Alanine Aminotransferase 19 U/L (7-40); Albumin 4.1 g/dL (3.2-4.8); Alkaline Phosphatase 89 U/L (46-116); Anion Gap 9 (5-15); BUN/Creatinine Ratio 9.2 (10.0-20.0); Bilirubin, Total 0.4 mg/dL (0.2-1.0); Calcium 9.4 mg/dL (8.7-10.4); Carbon Dioxide 27 mmol/L (20-31); Chloride 102 mmol/L (98-107); Glucose 91 mg/dL (74-106); Lipase 35 U/L (12-53); Potassium 4.5 mmol/L (3.5-5.1); Sodium 138 mmol/L (136-145); Total Protein 6.8 g/dL (5.7-8.2)
[2025-08-11 03:47] LABS: Blood Urea Nitrogen 8 mg/dL (9-23)
--- NOTE | 2025-08-11 03:51 | DVH ---
Exam: CT CT AB PEL WO CON-NO ORAL OR IV History: bilateral flank pain Comparison Study: CT CT AB PEL WO CON-NO ORAL OR IV on DOS: 08/02/25 Technique: Multidetector spiral CT of the abdomen was performed from lung bases to pubic symphysis. I maging was performed without IV contrast. Axial, coronal and sagittal multiplanar reformats were obta ined from the axial data set by the technologist. Radiation Dose : 1. Abdomen/Pelvis: CTDIvol 6.05 mGy, DLP 344.89 mGy*cm. Findings: Evaluation of solid organs is limited due to lack of intravenous contrast use. Lung Bases: No acute or significant lung base finding. Normal heart size. No pleural or pericardial effusion. Liver: The liver is normal in size. No focal lesions. Gallbladder and Biliary Tree: Unremarkable Spleen: Unremarkable Pancreas: The pancreas is grossly normal in appearance. Adrenal Glands: Unremarkable Kidneys: Mild left hydronephrosis. Left ureteral stent noted. Bladder: Grossly unremarkable for degree of distention. Bowel: Small sliding-type hiatal hernia. The stomach is grossly normal in appearance. Retained colore ctal stool. Small bowel and colon are otherwise normal in caliber and distribution. The appendix is n ot visualized; however, no secondary findings of acute appendicitis identified. Ascites: Absent Lymphadenopathy: No mesenteric, retroperitoneal or periportal lymphadenopathy. Abdominal Wall and Mesentery: Unremarkable. Vasculature: The visualized abdominal aorta is normal in size and caliber. Evaluation of abdominal a nd pelvic vessels is limited due to lack of intravenous contrast. Pelvic Organs: Unremarkable status post hysterectomy. Musculoskeletal: No aggressive focal bony lesions, acute fractures or dislocation. Hardware status po st L3 through S1 transforaminal lumbar interbody fusion without evidence of complication. IMPRESSION: 1. Mild left hydronephrosis with left ureteral stent in situ. 2. Small sliding-type hiatal hernia. 3. Retained colorectal stool. Radiation optimization: All CT scans at this facility use at least one of these dose optimization meliton hniques: automated exposure control mA and/or kV adjustment per patient size (includes targeted exam s where dose is matched to clinical indication) or iterative reconstruction.
[2025-08-11] MEDS: MORPHINE SULFATE 4 MG/ML SYR/VIAL IV ONE (04:02)
[2025-08-11] MEDS: ONDANSETRON HCL 4 MG/2 ML VIAL IV ONE (04:02)
[2025-08-11] MEDS: SODIUM CHLORIDE 0.9% 1,000 ML IVB ONE (04:02)
[2025-08-11] MEDS ORDERED: CEFD300C2 PO (04:18)
[2025-08-11] MEDS ORDERED: GABA300T4 PO (04:18)
[2025-08-11 04:46] LABS: Urine Protein, UAD 1+ (Negative)
[2025-08-11 04:47] VITALS: PULSE 65; RESP 18; O2SAT 97
[2025-08-11 05:07] VITALS: BP 117/81; PULSE 69; RESP 18; TEMP 97.9; O2SAT 99
== END 2025-08-11 04:18 | disposition home or self-care (01) ==
LOC: ER 02:15
DX: R10.9 Unspecified abdominal pain (principal); F12.90 Cannabis use, unspecified, uncomplicated; F41.9 Anxiety disorder, unspecified; F20.9 Schizophrenia, unspecified; F31.9 Bipolar disorder, unspecified; Z96.0 Presence of urogenital implants; Z79.899 Other long term (current) drug therapy; Z87.442 Personal history of urinary calculi
CPT/HCPCS: 36415; 74176; 80053; 81001; 83690; 85025; 96361; 96365; 96375; 99285; J0696; J2270; J2405; J7030

== ENCOUNTER 2025-08-22 13:09 | Inpatient (IN) | payer MEDICAID ==
[~2025-08-22] VITALS: Ht 165.1 cm; Wt 69.7 kg
[~2025-08-22 13:09] MED LIST changes: +CEFD300C2 PO; +GABA300T4 PO
--- NOTE | 2025-08-22 13:56 | ED.PDOC ---
General HPI Comments This is a 60 year old female presenting to the ED with chief complaint of abdominal pain. Patient reports that she has been experiencing 9/10 abdominal pain with associated dysuria, chills, dizziness, and urinary frequency for the past 3 days. Patient relays that she had a kidney stent placed a month ago for right sided kidney stones. Patient denies any N/V/D, fever, chills, flank pain, chest pain, or hematuria. Chief Complaint: Urinary Time Seen by MD: 13:52 Reviewed notes: Nurses Notes, Medications, Allergies Allergies: Coded Allergies: NO KNOWN ALLERGIES (Unverified , 08/02/25) Home Meds Active Scripts Gabapentin (Once-Daily) (Gabapentin) 300 Mg Tab, 300 MG PO Q6HP PRN, #60 TAB Prov:FELY BLAKELY MD 08/11/25 Cefdinir (Cefdinir) 300 Mg Cap, 1 CAP PO BID for 10 Days, #20 CAP Prov:FELY BLAKELY MD 08/11/25 Oxycodone W/ Acetaminophen (Percocet 5/325MG) 1 Tab Tb, 1 TAB PO QID PRN, #30 TAB Prov:ELIDA WILSON MD 08/04/25 Reported Medications Clonazepam (KlonoPIN TABLET) 0.5 Mg Tb, 1 TAB PO TID, #90 TAB 08/02/25 Ziprasidone Hydrochloride (Geodon) 80 Mg Cap, 1 CAP PO DAILY, #60 CAP 1 Refill 08/02/25 Linaclotide Base (LINZESS) 145 Mcg Cap, 1 CAP PO DAILY 08/02/25 Information Source: Patient Mode of Arrival: Ambulatory Severity: Moderate Inability to void: None Timing: Days Duration: Since onset Prehospital treatment: None Onset: Spontaneous Symptoms: Dysuria, Frequency History of: Kidney stone Location: Abdomen Modifying factors: None associated signs and symptoms: Abdominal Pain, Dysuria, Frequency Past Medical History PAST MEDICAL HISTORY: Anxiety, Cancer (Cervical), Kidney Stones, Schizophrenia Surgical History: Hernia Repair, Hysterectomy Surgical History (Other): Ectopic surgery, bilateral eye surgery, kidney stent [employer] History: Denies all [employer]ER Hx Family History Family History: Reviewed,noncontributory to illness Social History Smoker: Non-Smoker Alcohol: Denies ETOH Use Drugs: Marijuana Lives In: Home Constitutional: reports: chills; denies: diaphoresis, fatigue, fever, malaise, sweats, weakness, others EENTM: denies: blurred vision, double vision, ear bleeding, ear discharge, ear drainage, ear pain, ear ringing, eye pain, eye redness, hearing loss, mouth pain, mouth swelling, nasal discharge, nose bleeding, nose congestion, nose pain, photophobia, tearing, throat pain, throat swelling, voice changes, others Respiratory: denies: cough, hemoptysis, orthopnea, SOB at rest, shortness of breath, SOB with excertion, stridor, wheezing, others Cardiovascular: denies: chest pain, dizzy spells, diaphoresis, Dyspnea on exe rtion, edema, irregular heart beat, left arm pain, lightheadedness, palpitations, PND, syncope, others Gastrointestinal: reports: abdominal pain; denies: abdomen distended, blood streaked bowels, constipated, diarrhea, dysphagia, difficulty swallowing, hematemesis, melena, nausea, poor appetite, poor fluid intake, rectal bleeding, rectal pain, vomiting, others Genitourinary: reports: dysuria, frequency; denies: abnormal vagina bleeding, burning, dyspareunia, flank pain, hematuria, incontinence, pain, , vagina discharge, urgency, others Neurological: reports: dizziness; denies: fainting, headache, left sided numbness, left sided weakness, numbness, paresthesia, pre-existing deficit, right sided numbness, right sided weakness, seizure, speech problems, tingling, tremors, weakness, others Musculoskeletal: denies: back pain, gout, joint pain, joint swelling, muscle pain, muscle stiffness, neck pain, others Integumetry: denies: bruises, change in color, change in hair/nails, dryness, laceration, lesions, lumps, rash, wounds, others Allergic/Immunocompromised: denies: Difficulty Healing, Frequent Infections, Hives, Itching, others Hematologic/Lymphatic: denies: anemia, blood clots, easy bleeding, easy bruising, swollen glands, others Endocrine: denies: excessive hunger, excessive sweating, excessive thirst, excessive urination, flushing, intolerance to cold, intolerance to heat, unexplained weight gain, unexplained weight loss, others Psychiatric: denies: anxiety, bipolar disorder, depression, hopeless, panic disorder, schizophrenia, sleepless, suicidal, others All Other Systems: Reviewed and Negative Physical Exam General Appearance: Moderate Distress HEENT: Normal ENT Inspection, Pharynx Normal, TMs Normal Neck: Full Range of Motion, Non-Tender, Normal, Normal Inspection Respiratory: Chest Non-Tender, Lungs Clear, No Accessory Muscle Use, No Respiratory Distress, Normal Breath Sounds Cardiovascular: No Edema, No JVD, No Murmur, No Gallop, Normal Peripheral Pulses, Regular Rate/Rhythm Breast Exam: Deferred Gastrointestinal: Diffuse, No Organomegaly, No Pulsatile Mass, Normal Bowel Sounds, Soft, Tenderness Genitalia: Deferred Pelvic: Deferred Rectal: Deferred Extremities: No calf tenderness, Normal capillary refill, Normal inspection, Normal range of motion, Non-tender, No pedal edema Musculoskeletal : Apperance: Normal Neurologic: Alert, fish boning machine feeder II-XII nml as Tested, No Motor Deficits, Normal Affect, Normal Mood, No Sensory Deficits Cerebellar Function: Normal Reflexes: Normal Skin: Dry, Normal Color, Warm Lymphatic: No Adenopathy Was a procedure done? Was a procedure done?: No Differential Diagnosis Kidney stone (Female): Musculoskeletal pain, Ovarian torsion, Strain, Urolithiasis X-Ray, Labs, Meds, VS Vital Signs Date Time Temp Pulse Resp B/P (MAP) Pulse Ox O2 Delivery O2 Flow Rate FiO2 08/22/25 13:10 97.9 84 18 123/73 97 97.9 Lab Test 08/22/25 14:24 08/22/25 14:07 Range/Units Urine Color Light-yellow Yellow Urine Clarity Clear Clear Urine pH 5.5 5.0-9.0 Urine Specific [place] 1.012 1.001-1.035 Urine Protein 1+ H Negative Urine Ketones Negative Negative Urine Blood 3+ H Negative /uL Urine Nitrite Negative Negative Urine Bilirubin Negative Negative Urine Urobilinogen Normal Negative mg/dL Urine Leukocyte Esterase 3+ Negative /uL Urine RBC 17 0 - 4 /hpf Urine Microscopic WBC 12 H 0-5 /HPF Urine Squamous Epithelial Cells None seen <5 /hpf Urine Bacteria Few H None Seen /hpf Urine Mucus Few None Seen Urine Glucose Normal Normal mg/dL White Blood Count 7.9 4.4-10.8 10^3/uL Red Blood Count 3.54 L 4.0-5.20 10^6/uL Hemoglobin 11.0 L 12.2-16.2 g/dL Hematocrit 33.5 L 36.0-46.0 % Mean Corpuscular Volume 94.6 80.0-100.0 fL Mean Corpuscular Hemoglobin 31.0 28.0-32.0 pg Mean Corpuscular Hemoglobin Concent 32.8 32.0-36.0 g/dL Red Cell Distribution Width 12.7 11.8-14.3 % Platelet Count 364 140-450 10^3/uL Mean Platelet Volume 6.9 6.9-10.8 fL Neutrophils (%) (Auto) 57.1 37.0-80.0 % Lymphocytes (%) (Auto) 31.3 10.0-50.0 % Monocytes (%) (Auto) 8.7 0.0-12.0 % Eosinophils (%) (Auto) 2.2 0.0-7.0 % Basophils (%) (Auto) 0.7 0.0-2.0 % Neutrophils # (Auto) 4.5 1.6-8.6 10 ^3/uL Lymphocytes # (Auto) 2.5 0.4-5.4 10 ^3/uL Monocytes # (Auto) 0.7 0-1.3 10 ^3/uL Eosinophils # (Auto) 0.2 0-0.8 10 ^3/uL Basophils # (Auto) 0.1 0-0.2 10 ^3/uL Nucleated Red Blood Cells 0.0 % Sodium Level 139 136-145 mmol/L Potassium Level 4.1 3.5-5.1 mmol/L Chloride Level 107 98-107 mmol/L Carbon Dioxide Level 25 20-31 mmol/L Anion Gap 7 5-15 Blood Urea Nitrogen 14 9-23 mg/dL Creatinine 0.94 0.550-1.02 mg/dL Glomerular Filtration Rate Calc 69 >90 mL/min BUN/Creatinine Ratio 14.9 10.0-20.0 Serum Glucose 96 74-106 mg/dL Calcium Level 9.2 8.7-10.4 mg/dL CT Abd/Pel indicates: No acute intraabdominal abnormality. Left ureteral stent in place and appears stable to prior. The patient's CBC is within normal limits. The chemistry panel is within normal limits The urine test is positive for UTI At this time, the patient is being admitted to the hospitalist Images Reviewed?: Images reviewed and evaluated by me Time of 1ST Reevaluation: 16:19 Reevaluation 1ST: Unchanged Patient Education/Counseling: Diagnosis, Treatment, Prognosis Family Education/Counseling: No Family Present SEPSIS Sepsis Screen Date sepsis recognized/suspect: Aug 22, 2025 Time Sepsis recognized/suspect: 1310 Recent Procedure: No On Antibiotic Therapy: No Respiratory Rate >20: No Heart Rate >90: No Temp<36 C (96.8 F) or >38.3 C: No SBP <90 or MAP <65 mmHG: No New Acute Mental Status Change: No Is the patient on CPAP, BIPAP,: No Physician Orders Ct Ab Pel Wo Con-No Oral Or Iv (08/22/25 13:54) Vital Signs Date Time Temp Pulse Resp B/P (MAP) Pulse Ox O2 Delivery O2 Flow Rate FiO2 08/22/25 13:10 97.9 84 18 123/73 97 97.9 Laboratory Tests Test 08/22/25 14:07 White Blood Count 7.9 10^3/uL (4.4-10.8) Departure 1 Departure Time of Disposition: 16:18 Impression: Primary Impression: Intractable abdominal pain Additional Impressions: History of renal stent UTI (urinary tract infection) Qualified Codes: N30.00 - Acute cystitis without hematuria Disposition: ADMITTED INPATIENT Admit to: Med Surg Condition: Fair Critical Care Note Critical Care Time?: No Stability Stability form required: No Heart Score Heart Score: Heart Score Response (Comments) Value History N/A 0 EKG N/A 0 Age N/A 0 Risk Factors N/A 0 Troponin N/A 0 Total 0 I personally scribed for JONATHAN GUY MD ([email or web address]) on 08/22/25 at 13:56. Electronically submitted by Ryan Vargas ([email or web address]). I personally scribed for JONATHAN GUY MD ([email or web address]) on 08/22/25 at 15:01. Electronically submitted by Ryan Vargas ([email or web address]). JONATHAN GUY MD Aug 22, 2025 13:56
[2025-08-22 14:30] LABS: Hematocrit 33.5 % (36.0-46.0); Hemoglobin 11.0 g/dL (12.2-16.2); Mean Corpuscular Hemoglobin 31.0 pg (28.0-32.0); Mean Corpuscular Volume 94.6 fL (80.0-100.0); Nucleated Red Blood Cells % 0.0 %
[2025-08-22 14:41] LABS: Anion Gap 7 (5-15); Carbon Dioxide 25 mmol/L (20-31); Potassium 4.1 mmol/L (3.5-5.1); Sodium 139 mmol/L (136-145)
[2025-08-22 14:42] LABS: Calcium 9.2 mg/dL (8.7-10.4)
[2025-08-22 14:45] LABS: Chloride 107 mmol/L (98-107)
[2025-08-22 14:47] LABS: BUN/Creatinine Ratio 14.9 (10.0-20.0); Blood Urea Nitrogen 14 mg/dL (9-23); Glucose 96 mg/dL (74-106)
[2025-08-22 14:54] LABS: Urine Protein, UAD 1+ (Negative)
--- NOTE | 2025-08-22 14:57 | DVH ---
CT CT AB PEL WO CON-NO ORAL OR IV INDICATION: PAIN EXAM DATE: 08/22/2025 02:20 PM COMPARISON: CT CT AB PEL WO CON-NO ORAL OR IV on DOS: 08/11/25, XY KUB ABDOMEN SINGLE VIEW on DOS: 07/11 04/02, CT CT AB PEL WO CON-NO ORAL OR IV on DOS: 08/02/25 RADIATION DOSE: CTDIvol: 7 mGy, DLP: 350 mGy*cm PROCEDURE: Helical CT images were obtained of the abdomen and pelvis without IV contrast Sagittal and coronal reconstructions are provided. ORAL CONTRAST: None. ADDITIONAL IMAGES / REFORMATS: None All C T scans at this medical facility are performed using dose modulation techniques as appropriate to a p erformed exam including the following: Automated exposure control was utilized; adjustment of the MA and/or KV according to patient size; and use of iterative reconstruction technique. FINDINGS: LUNG BASE: Normal. LIVER: Normal. GALLBLADDER AND BILIARY TREE: No calcified gallstones. Normal caliber wall. No intra- or extrahepatic biliary ductal dilation. PANCREAS: Normal. SPLEEN: Normal. BOWEL: Moderate colonic diverticulosis. Appendix not visualized. ADRENALS: Normal. KIDNEYS AND URETER: A left ureteral stent in place and appears stable to prior. BLADDER: Normal. REPRODUCTIVE ORGANS: Normal. LYMPH NODES:No lymphadenopathy. PERITONEUM: No ascites or free air. No other fluid collection. VESSELS: Scattered atherosclerotic calcifications are noted. RETROPERITONEUM: Normal. ABDOMINAL WALL: Normal. BONES: Scattered osseous degenerative changes are noted. Lumbar spinal hardware appears intact. IMPRESSION: No acute intraabdominal abnormality. Left ureteral stent in place and appears stable to prior.
--- NOTE | 2025-08-22 16:37 | DVHHP2 ---
History of Present Illness Reason for Visit: Abdominal pain with dysuria History of Present Illness Elana Dee is a 60 year old female with past medical history of nephrolithiasis, anxiety, cervical cancer, schizophrenia, hernia repair, hysterectomy, ectopic surgery, bilateral eye surgery, kidney stent, right foot surgery, nasal surgery, neck tumor removal, and endometriosis who presents to the ED with abdominal pain with dysuria, chills, dizziness, and frequency x3 days. Patient states that she has a right kidney stone and is causing her pain. Patient reports that the pain is 10/10 sharp and constant. Patient states that walking makes it worse and lying down or hot packs makes it better. Patient seen in a wheelchair. Patient reports that she recently came here 1 month ago from [place] to [place]. Patient denies any recent trauma or injury, recent sick contacts, recent ingestion of spoiled food, chest pain, shortness of breath, fever, lighthea dedness, weakness, nausea, vomiting, or diarrhea. Psych: Anxiety, Schizophrenia Past Medical History Nephrolithiasis Cervical cancer Endometriosis Past Surgical History: Hysterectomy, Hernia Repair, Other (Ectopic surgery, bilateral eye surgery, kidney stent, right foot surgery, nasal surgery, and neck tumor removal) Family History: None Smoke: No ALCOHOL: none Drugs: None Lives: with Family Domestic Violence: Neg Review of Systems Constitutional: Yes: Chills, Other (Dizziness) Gastrointestinal: Abdominal Pain Genitourinary: Dysuria, Frequency Allergies: Coded Allergies: NO KNOWN ALLERGIES (Unverified , 08/02/25) Exam Vital Signs Vital Signs Date Time Temp Pulse Resp B/P (MAP) Pulse Ox O2 Delivery O2 Flow Rate FiO2 08/22/25 13:10 97.9 84 18 123/73 97 97.9 General Appearance: Alert, Oriented X3, Cooperative, No acute distress HEENT: Atraumatic, PERRLA, EOMI Respiratory: Normal air movement Cardiovascular: Regular rate, Normal S1, Normal S2 Abdominal: Normal bowel sounds, Soft Extremities: No clubbing, No cyanosis Skin: No significant lesion Neuro: Normal speech, Normal tone, Sensation intact Psych/Mental Status: Mental status NL, Mood NL Labs/Xrays Labs Test 08/22/25 14:24 08/22/25 14:07 Range/Units Urine Color Light-yellow Yellow Urine Clarity Clear Clear Urine pH 5.5 5.0-9.0 Urine Specific [place] 1.012 1.001-1.035 Urine Protein 1+ H Negative Urine Ketones Negative Negative Urine Blood 3+ H Negative /uL Urine Nitrite Negative Negative Urine Bilirubin Negative Negative Urine Urobilinogen Normal Negative mg/dL Urine Leukocyte Esterase 3+ Negative /uL Urine RBC 17 0 - 4 /hpf Urine Microscopic WBC 12 H 0-5 /HPF Urine Squamous Epithelial Cells None seen <5 /hpf Urine Bacteria Few H None Seen /hpf Urine Mucus Few None Seen Urine Glucose Normal Normal mg/dL White Blood Count 7.9 4.4-10.8 10^3/uL Red Blood Count 3.54 L 4.0-5.20 10^6/uL Hemoglobin 11.0 L 12.2-16.2 g/dL Hematocrit 33.5 L 36.0-46.0 % Mean Corpuscular Volume 94.6 80.0-100.0 fL Mean Corpuscular Hemoglobin 31.0 28.0-32.0 pg Mean Corpuscular Hemoglobin Concent 32.8 32.0-36.0 g/dL Red Cell Distribution Width 12.7 11.8-14.3 % Platelet Count 364 140-450 10^3/uL Mean Platelet Volume 6.9 6.9-10.8 fL Neutrophils (%) (Auto) 57.1 37.0-80.0 % Lymphocytes (%) (Auto) 31.3 10.0-50.0 % Monocytes (%) (Auto) 8.7 0.0-12.0 % Eosinophils (%) (Auto) 2.2 0.0-7.0 % Basophils (%) (Auto) 0.7 0.0-2.0 % Neutrophils # (Auto) 4.5 1.6-8.6 10 ^3/uL Lymphocytes # (Auto) 2.5 0.4-5.4 10 ^3/uL Monocytes # (Auto) 0.7 0-1.3 10 ^3/uL Eosinophils # (Auto) 0.2 0-0.8 10 ^3/uL Basophils # (Auto) 0.1 0-0.2 10 ^3/uL Nucleated Red Blood Cells 0.0 % Sodium Level 139 136-145 mmol/L Potassium Level 4.1 3.5-5.1 mmol/L Chloride Level 107 98-107 mmol/L Carbon Dioxide Level 25 20-31 mmol/L Anion Gap 7 5-15 Blood Urea Nitrogen 14 9-23 mg/dL Creatinine 0.94 0.550-1.02 mg/dL Glomerular Filtration Rate Calc 69 >90 mL/min BUN/Creatinine Ratio 14.9 10.0-20.0 Serum Glucose 96 74-106 mg/dL Calcium Level 9.2 8.7-10.4 mg/dL SEPSIS Sepsis Screen Date sepsis recognized/suspect: Aug 22, 2025 Time Sepsis recognized/suspect: 1310 Recent Procedure: No On Antibiotic Therapy: No Respiratory Rate >20: No Heart Rate >90: No Temp<36 C (96.8 F) or >38.3 C: No SBP <90 or MAP <65 mmHG: No New Acute Mental Status Change: No Is the patient on CPAP, BIPAP,: No Physician Orders Ct Ab Pel Wo Con-No Oral Or Iv (08/22/25 13:54) Vital Signs Date Time Temp Pulse Resp B/P (MAP) Pulse Ox O2 Delivery O2 Flow Rate FiO2 08/22/25 13:10 97.9 84 18 123/73 97 97.9 Laboratory Tests Test 08/22/25 14:07 White Blood Count 7.9 10^3/uL (4.4-10.8) Assessment/Plan Assessment/Plan Assessment Intractable abdominal pain with dysuria, chills, frequency, and dizziness likely due to acute cystitis History of nephrolithiasis History of anxiety History of cervical cancer History of schizophrenia History of hernia repair History of hysterectomy History of ectopic surgery History of bilateral eye surgery History of kidney stent History of right foot surgery History of nasal surgery History of neck tumor removal History of endometriosis Plan Admit to med surge Antiemetics Pain management IV antibiotics-ceftriaxone UA CT abdomen and pelvis noted Home medications reconciled IV morphine Diet DVT prophylaxis-SCDs PUD prophylaxis-PPIs Discussed plan of care with patient and nurse [id number] Preventive counseling healthy eating habits, physical activity, and regular checkups Plan discussed with: Patient Date of Service: Aug 22, 2025 Billing Provider: RICARDO ESTRADA Common Visit Codes: 18316-[id number] INP/OBS CARE (HIGH) Secondary Visit Codes: 94922-[id number] COUNSELING IND RICARDO ESTRADA Aug 22, 2025 16:37
[2025-08-22] MEDS ORDERED: ACETAMINOPHEN 325 MG TAB PO PRN (16:45)
[2025-08-22] MEDS ORDERED: ONDANSETRON HCL 4 MG/2 ML VIAL IV PRN (16:45)
[2025-08-22] MEDS ORDERED: MORPHINE SULFATE INJ 2 MG/ml SYRG IV PRN (16:45)
[2025-08-22 20:23] LABS: Benzodiazephine Screen, Urine Neg (NEGATIVE)
[2025-08-22 20:24] LABS: Cannabinoid Screen, Urine Pos (NEGATIVE); Opiate Scree,Urine Neg (NEGATIVE)
[2025-08-22 21:16] LABS: Amphetamine Screen, Urine Neg (NEGATIVE); Barbiturate Scree,Urine Neg (NEGATIVE); Cocaine Screen, Urine Neg (NEGATIVE); Phencyclidine Screen, Urine Neg (NEGATIVE)
[2025-08-22] MEDS: KETOROLAC TROMETH 30 MG/ML 1ML VIAL IV ONE (22:06)
[2025-08-22] MEDS: HYDROcodone-ACET 5/325MG TAB PO PRN (23:41)
[2025-08-23] VITALS (7 sets, daily range): BP systolic 103–136; BP diastolic 69–89; PULSE 59–87; RESP 11–19; TEMP 97.5–98.7; O2SAT 97–99
[2025-08-23 06:27] LABS: Hematocrit 31.1 % (36.0-46.0); Hemoglobin 10.7 g/dL (12.2-16.2); Mean Corpuscular Hemoglobin 31.9 pg (28.0-32.0); Mean Corpuscular Volume 92.4 fL (80.0-100.0)
[2025-08-23 06:33] LABS: Alanine Aminotransferase 20 U/L (7-40); Albumin 3.8 g/dL (3.2-4.8); Alkaline Phosphatase 78 U/L (46-116); Anion Gap 10 (5-15); BUN/Creatinine Ratio 14.8 (10.0-20.0); Blood Urea Nitrogen 13 mg/dL (9-23); Calcium 9.1 mg/dL (8.7-10.4); Carbon Dioxide 24 mmol/L (20-31); Chloride 106 mmol/L (98-107); Glucose 84 mg/dL (74-106); Potassium 3.9 mmol/L (3.5-5.1); Sodium 140 mmol/L (136-145); Total Protein 6.4 g/dL (5.7-8.2)
[2025-08-23 06:34] LABS: Bilirubin, Total 0.3 mg/dL (0.2-1.0)
[2025-08-23 08:23] LABS: Smudge Cells 2 /100 WBC; Total Cells Counted 100.0 (100)
[2025-08-23] MEDS: HYDROmorphone HCL 2 MG/ML VL/or syr IV PRN (16:01)
--- NOTE | 2025-08-23 16:03 | DVHPN2 ---
Subjective Patient continues to have abdominal pain. Reviewed: Care Plan, H&P, Labs, Medications Changes from previous H/P or p: No Changes General: Per HPI Gastrointestinal: Abdominal Pain Genitourinary: Dysuria, Frequency Objective Vitals Vital Signs Date Time Temp Pulse Resp B/P (MAP) Pulse Ox O2 Delivery O2 Flow Rate FiO2 08/23/25 12:45 98.7 66 16 103/69 (80) 98 98.7 08/22/25 19:52 Room Air* 0 21 General Appearance: Alert, Oriented X3, Cooperative, mild distress HEENT: Atraumatic, PERRLA Cardiovascular: Normal S1, Normal S2 Musculoskeletal: Normal sensory function, Normal motor function Skin: Dry, Intact Psych/Mental Status: Mental status NL, Mood NL Medications Current Medications Medications Dose Ordered Sig/Karen Route Start Time Stop Time Status Last Admin Dose Admin Ceftriaxone Sodium 50 ml @ 100 mls/hr DAILY@09 IV 08/22/25 16:45 08/23/25 10:05 100 MLS/HR Acetaminophen/ Hydrocodone Bitart 1 tab Q4HP PRN PO 08/22/25 16:45 08/23/25 09:00 1 TAB Ondansetron HCl 4 mg Q4HP PRN IV 08/22/25 16:45 Acetaminophen 650 mg Q6HP PRN PO 08/22/25 16:45 Hydromorphone HCl 0.5 mg Q4HPRN PRN IV 08/23/25 11:00 Laboratory Results Laboratory Tests 08/23/25 05:08 Chemistry Test 08/23/25 05:08 Albumin 3.8 g/dL (3.2-4.8) Calcium Level 9.1 mg/dL (8.7-10.4) Total Protein 6.4 g/dL (5.7-8.2) LFT Test 08/23/25 05:08 Alanine Aminotransferase (ALT) 20 U/L (7-40) Alkaline Phosphatase 78 U/L (46-116) Aspartate Amino Transferase (AST) 21 U/L (13-40) Total Bilirubin 0.3 mg/dL (0.2-1.0) Urinalysis Test 08/22/25 14:24 Urine Color Light-yellow (Yellow) Urine Clarity Clear (Clear) Urine pH 5.5 (5.0-9.0) Urine Specific [place] 1.012 (1.001-1.035) Urine Protein 1+ (Negative) H Urine Ketones Negative (Negative) Urine Blood 3+ /uL (Negative) H Urine Nitrite Negative (Negative) Urine Bilirubin Negative (Negative) Urine Urobilinogen Normal mg/dL (Negative) Urine Leukocyte Esterase 3+ /uL (Negative) Urine RBC 17 /hpf (0 - 4) Urine Microscopic WBC 12 /HPF (0-5) H Urine Squamous Epithelial Cells None seen /hpf (<5) Urine Bacteria Few /hpf (None Seen) H Urine Mucus Few (None Seen) Urine Glucose Normal mg/dL (Normal) Microbiology Microbiology Date/Time Source Procedure Growth Status 08/22/25 14:24 Voided Urine Urine Culture - Preliminary Resulted Labs and/or images reviewed: Labs reviewed by me, Image(s) reviewed by me Assessment/Plan Assessment/Plan Impression: -complicated cystitis -recent ureter stent placement -schizophrenia -anemia Plan: -urology consultation for reassessment of ureter stent with possible removal -restart Mervin Salinasonopin -continue IV Rocephin -blood and urine culture -repeat labs in a.m. -pain management Total time spent with patient discussing and formulating plan of care: 35 minutes. This medical document was created using an electronic medical record system with [employer] dictation system. Although this document has been carefully reviewed, there may still be some phonetic and typographical errors. These areas are purely typographical due to imperfections of the software programs, and do not reflect any compromise in the patient's medical care. Plan discussed with: Patient, Other (RN) My Orders Orders - EVELIN POWELL NP Procedure Category Date Status Time Hydromorphone PHA 08/23/25 In Process Injection (Dilaudid 11:00 Clonazepam Tablet PHA 08/23/25 Verified (Klonopin Tablet) 22:00 (Nf) Ziprasidone PHA 08/24/25 Verified Hydrochloride (Geodon) 10:00 Artificial Tear 15ml PHA 08/23/25 Verified Opthalmic (Tears Na 16:00 * Urology Consult CONS 08/23/25 Verified 15:57 Date of Service: Aug 23, 2025 Billing Provider: EVELIN POWELL NP Common Visit Codes: [id number] INP/OBS CARE(HIGH) EVELIN POWELL NP Aug 23, 2025 16:03
--- NOTE | 2025-08-23 16:41 | DVHINCON2 ---
Date of service: Aug 23, 2025 Referring Physician Hospitalist Reason for Consultation Left ureteral stent in-situ Abdominal pain History of Present Illness Patient underwent a cystoscopy with left retrograde pyelogram and left ureteral stent placement for finding of mild ureteral dilation on 08/02/2025. She was preoperatively diagnosed with the 3 mm left distal ureteral calculus but was not found intraoperatively. Stent was placed with plans for return to OR for ureteroscopy if indicated 2-3 weeks later. She now returns to the hospital and is admitted for severe abdominal pain likely to be secondary to stent intolerance. The CT scan does not show any evidence of urolithiasis therefore I will proceed with cystoscopy with stent removal urgently. 60 year old female with past medical history of nephrolithiasis, anxiety, cervical cancer, schizophrenia, hernia repair, hysterectomy, ectopic surgery, bilateral eye surgery, kidney stent, right foot surgery, nasal surgery, neck tumor removal, and endometriosis who presents to the ED with abdominal pain with dysuria, chills, dizziness, and frequency x3 days. Patient states that she has a right kidney stone and is causing her pain. Patient reports that the pain is 10/10 sharp and constant. Patient states that walking makes it worse and lying down or hot packs makes it better. Patient seen in a wheelchair. Patient reports that she recently came here 1 month ago from [place] to [facility]. Patient denies any recent trauma or injury, recent sick contacts, recent ingestion of spoiled food, chest pain, shortness of breath, fever, lightheadedness, weakness, nausea, vomiting, or diarrhea. Psych: Anxiety, Schizophrenia Past Medical History Nephrolithiasis Cervical cancer Endometriosis Past Surgical History Left ureteral stent placement on 08/02/2025 Past Surgical History: Hysterectomy, Hernia Repair, Other (Ectopic surgery, bilateral eye surgery, kidney stent, right foot surgery, nasal surgery, and neck tumor removal) Family History: FH: cancer G8 FATHER Allergies: Coded Allergies: NO KNOWN ALLERGIES (Unverified , 08/02/25) Home Meds Reported Medications Clonazepam (KlonoPIN TABLET) 0.5 Mg Tb, 1 TAB PO TID, #90 TAB 08/02/25 Ziprasidone Hydrochloride (Geodon) 80 Mg Cap, 1 CAP PO DAILY, #60 CAP 1 Refill 08/02/25 Current Medications Current Medications Medications (Trade) Dose Ordered Sig/Karen Route PRN Reason Start Time Stop Time Status Last Admin Ceftriaxone Sodium 50 ml @ 100 mls/hr DAILY@09 IV 08/22/25 16:45 08/23/25 10:05 Acetaminophen/ Hydrocodone Bitart ([place] View 5/325MG Tab) 1 tab Q4HP PRN PO MODERATE PAIN (4-6 PAIN SCALE) 08/22/25 16:45 08/23/25 09:00 Ondansetron HCl (Zofran) 4 mg Q4HP PRN IV NAUSEA / VOMITING 08/22/25 16:45 Acetaminophen (Tylenol Tablet) 650 mg Q6HP PRN PO PAIN SCALE 1-3 OR TEMP>100.4 08/22/25 16:45 Morphine Sulfate 2 mg Q4HPRN PRN IV SEVERE PAIN (7-10 PAIN SCALE) 08/22/25 16:45 08/23/25 11:01 DC Hydromorphone HCl (Dilaudid Injection) 0.5 mg Q4HPRN PRN IV PAIN SCALE 7 THRU 10 08/23/25 11:00 08/23/25 16:01 Clonazepam (KlonoPIN TABLET) 0.5 mg TID PO 08/23/25 22:00 UNV Patient Own Medication 1 cap DAILY PO 08/24/25 10:00 UNV Artificial Tears (Tears Naturale) 2 drop Q2HP PRN EACHEYE DRY EYES 08/23/25 16:00 UNV Review of Systems Constitutional: Yes: Chills, Other (Dizziness) Gastrointestinal: Abdominal Pain Genitourinary: Dysuria, Frequency Allergies: Coded Allergies: NO KNOWN ALLERGIES (Unverified , 08/02/25) Vital Signs Vital Signs Date Time Temp Pulse Resp B/P (MAP) Pulse Ox O2 Delivery O2 Flow Rate FiO2 08/23/25 16:01 66 16 103/64 08/23/25 12:45 98.7 98 98.7 08/22/25 19:52 Room Air* 0 21 Physical Exam Date Time Temp Pulse Resp B/P (MAP) Pulse Ox O2 Delivery O2 Flow Rate FiO2 08/22/25 13:10 97.9 84 18 123/73 97 97.9 General Appearance: Alert, Oriented X3, Cooperative, No acute distress HEENT: Atraumatic, PERRLA, EOMI Respiratory: Normal air movement Cardiovascular: Regular rate, Normal S1, Normal S2 Abdominal: Normal bowel sounds, Soft Extremities: No clubbing, No cyanosis Skin: No significant lesion Neuro: Normal speech, Normal tone, Sensation intact Psych/Mental Status: Mental status NL, Mood NL Labs/Diagnostic Data Labs Test 08/23/25 05:08 08/22/25 17:55 08/22/25 14:24 08/22/25 14:07 Range/Units White Blood Count 7.5 4.4-10.8 10^3/uL Red Blood Count 3.37 L 4.0-5.20 10^6/uL Hemoglobin 10.7 L 12.2-16.2 g/dL Hematocrit 31.1 L 36.0-46.0 % Mean Corpuscular Volume 92.4 80.0-100.0 fL Mean Corpuscular Hemoglobin 31.9 28.0-32.0 pg Mean Corpuscular Hemoglobin Concent 34.5 32.0-36.0 g/dL Red Cell Distribution Width 12.3 11.8-14.3 % Platelet Count 311 140-450 10^3/uL Mean Platelet Volume 7.3 6.9-10.8 fL Neutrophils (%) (Auto) 37.0-80.0 % Lymphocytes (%) (Auto) 10.0-50.0 % Monocytes (%) (Auto) 0.0-12.0 % Basophils (%) (Auto) 0.0-2.0 % Neutrophils # (Auto) 1.6-8.6 10 ^3/uL Lymphocytes # (Auto) 0.4-5.4 10 ^3/uL Monocytes # (Auto) 0-1.3 10 ^3/uL Differential Total Cells Counted 100.0 100 Neutrophils % (Manual) 57 37.0-80.0 Band Neutrophils % (Manual) 2 Lymphocytes % (Manual) 34 10.0-50.0 Monocytes % (Manual) 6 0-12 Eosinophils % (Manual) 1 0-7 Basophils % (Manual) 0 0.0-2.0 Metamyelocytes % (manual) 0 Myelocytes % (Manual) 0 Promyelocytes % (Manual) 0 Blast Cells % (Manual) 0 Reactive Lymphocytes 0 Smudge Cells 2 /100 WBC Platelet Estimate Adequate Sodium Level 140 136-145 mmol/L Potassium Level 3.9 3.5-5.1 mmol/L Chloride Level 106 98-107 mmol/L Carbon Dioxide Level 24 20-31 mmol/L Anion Gap 10 5-15 Blood Urea Nitrogen 13 9-23 mg/dL Creatinine 0.88 0.550-1.02 mg/dL Glomerular Filtration Rate Calc 75 >90 mL/min BUN/Creatinine Ratio 14.8 10.0-20.0 Serum Glucose 84 74-106 mg/dL Calcium Level 9.1 8.7-10.4 mg/dL Total Bilirubin 0.3 0.2-1.0 mg/dL Aspartate Amino Transferase (AST) 21 13-40 U/L Alanine Aminotransferase (ALT) 20 7-40 U/L Alkaline Phosphatase 78 46-116 U/L Total Protein 6.4 5.7-8.2 g/dL Albumin 3.8 3.2-4.8 g/dL Lactic Acid Level 0.5 0.4-2.0 mmol/L Urine Color Light-yellow Yellow Urine Clarity Clear Clear Urine pH 5.5 5.0-9.0 Urine Specific [place] 1.012 1.001-1.035 Urine Protein 1+ H Negative Urine Ketones Negative Negative Urine Blood 3+ H Negative /uL Urine Nitrite Negative Negative Urine Bilirubin Negative Negative Urine Urobilinogen Normal Negative mg/dL Urine Leukocyte Esterase 3+ Negative /uL Urine RBC 17 0 - 4 /hpf Urine Microscopic WBC 12 H 0-5 /HPF Urine Squamous Epithelial Cells None seen <5 /hpf Urine Bacteria Few H None Seen /hpf Urine Mucus Few None Seen Urine Glucose Normal Normal mg/dL Urine Opiates Screen Neg NEGATIVE Urine Fentanyl Screen Neg NEGATIVE Urine Barbiturates Screen Neg NEGATIVE Urine Phencyclidine Screen Neg NEGATIVE Urine Amphetamines Screen Neg NEGATIVE Urine Benzodiazepines Screen Neg NEGATIVE Urine Cocaine Screen Neg NEGATIVE Urine Cannabinoids Screen Pos NEGATIVE Eosinophils (%) (Auto) 2.2 0.0-7.0 % Eosinophils # (Auto) 0.2 0-0.8 10 ^3/uL Basophils # (Auto) 0.1 0-0.2 10 ^3/uL Nucleated Red Blood Cells 0.0 % Microbiology Date/Time Source Procedure Growth Status 08/22/25 14:24 Voided Urine Urine Culture - Preliminary Resulted PATIENT: ARABELLA ASHFORD ACCT: [id number] UNIT: [id number] : 1965 LOC: ER ROOM / BED: / AGE / SEX: 60 / F ADM STATUS: REG ER SERVICE 1354 ORDERING PHYSICIAN: JONATHAN GUY MD PROCEDURE(s): ABPL - CT AB PEL WO CON-NO ORAL OR IV REASON: PAIN ORDER NUMBER(s): [id number], ACCESSION NUMBER(s): [id number] CT CT AB PEL WO CON-NO ORAL OR IV INDICATION: PAIN EXAM DATE: 08/22/2025 02:20 PM COMPARISON: CT CT AB PEL WO CON-NO ORAL OR IV on DOS: 08/11/25, XY KUB ABDOMEN SINGLE VIEW on DOS: 08/03/25, CT CT AB PEL WO CON-NO ORAL OR IV on DOS: 08/02/25 RADIATION DOSE: CTDIvol: 7 mGy, DLP: 350 mGy*cm PROCEDURE: Helical CT images were obtained of the abdomen and pelvis without IV contrast Sagittal and coronal reconstructions are provided. ORAL CONTRAST: None. ADDITIONAL IMAGES / REFORMATS: None All CT scans at this medical facility are performed using dose modulation techniques as appropriate to a performed exam including the following: Automated exposure control was utilized; adjustment of the MA and/or KV according to patient size; and use of iterative reconstruction technique. FINDINGS: LUNG BASE: Normal. LIVER: Normal. GALLBLADDER AND BILIARY TREE: No calcified gallstones. Normal caliber wall. No intra- or extrahepatic biliary ductal dilation. PANCREAS: Normal. SPLEEN: Normal. BOWEL: Moderate colonic diverticulosis. Appendix not visualized. ADRENALS: Normal. KIDNEYS AND URETER: A left ureteral stent in place and appears stable to prior. BLADDER: Normal. REPRODUCTIVE ORGANS: Normal. LYMPH NODES:No lymphadenopathy. PERITONEUM: No ascites or free air. No other fluid collection. VESSELS: Scattered atherosclerotic calcifications are noted. RETROPERITONEUM: Normal. ABDOMINAL WALL: Normal. BONES: Scattered osseous degenerative changes are noted. Lumbar spinal hardware appears intact. IMPRESSION: No acute intraabdominal abnormality. Left ureteral stent in place and appears stable to prior. ATED BY: TIO ARROYO MD DICTATED DATE/TIME: 08/22/251453 SIGNED BY: TIO ARROYO MD SIGNED DATE/TIME: 08/22/251453 CC: Assessment Left ureteral stent, in-situ Plan/Recommendation Cystoscopy with left ureteral stent removal Plan discussed with: Patient, Other CELIO HAYDEN MD Aug 23, 2025 16:41
--- NOTE | 2025-08-23 19:56 | DVHNC2 ---
Procedure - OPERATIVE REPORT Pre-op. Diagnosis: Ureteral Stent (Foreign Body) History of Ureteral Stone Post-op. Diagnosis: Same as pre-op diagnosis Operation: Cystoscopy, Ureteral stent removal Anesthesia: MAC Indications: Patient had undergone Cystoscopic placement of Left Ureteral stent for Stone disease. Patient no longer requires the ureteral stent at this particular time. Risks of Infections and damage to the surrounding structures were discussed. Benefits of stent removal when it is no longer needed were explained. Informed consent obtained. Details of Procedure: Patient was administered monitored anesthesia and placed into a lithotomy position. She was prepped and draped in the usual manner. Cystoscope was assembled and introduced into the bladder. The left ureteral stent was identified and removed using grasping forceps. Patient tolerated the procedure well. She was awakened taken to recovery room in stable condition Specimens: Complications: None CELIO HAYDEN MD Aug 23, 2025 19:56
[2025-08-23] MEDS ORDERED: MIDAZOLAM HCL 2MG/2ML 2ml VIAL (1mg/ml) ONE (20:16)
[2025-08-23] MEDS ORDERED: PROPOFOL 10 MG/ML 20 ML IV ONE (20:17)
[2025-08-23] MEDS ORDERED: fentaNYL CITRATE 100 MCG/2 ML VL ONE (20:30)
[2025-08-23] MEDS ORDERED: MORPHINE SULFATE 4 MG/ML SYR/VIAL IV PRN (21:00)
[2025-08-23] MEDS ORDERED: hydrALAZINE HCL 20 MG/ML VL IV PRN (21:00)
[2025-08-23] MEDS ORDERED: MIDAZOLAM HCL 2MG/2ML 2ml VIAL (1mg/ml) IV PRN (21:00)
[2025-08-23] MEDS ORDERED: ONDANSETRON HCL 4 MG/2 ML VIAL IV PRN (21:00)
[2025-08-23] MEDS ORDERED: HYDROmorphone HCL 2 MG/ML VL/or syr IV PRN (21:00)
[2025-08-23] MEDS: clonazePAM 0.5 MG TAB PO SCH (22:10)
[2025-08-24] VITALS (7 sets, daily range): BP systolic 100–123; BP diastolic 70–89; PULSE 61–80; RESP 12–18; TEMP 97.9–98.2; O2SAT 95–98
[2025-08-24] MEDS: ZIPRASIDONE HYDROCHLORIDE 80 MG PO SCH (10:00)
[2025-08-24] MEDS ORDERED: CIP500T PO (10:30)
[2025-08-24] MEDS ORDERED: PERCOT PO (10:30)
--- NOTE | 2025-08-24 10:36 | DVHDS2 ---
Discharge Summary Date of Admission Aug 22, 2025 at 16:35 Date of Discharge: Aug 24, 2025 Admitting Diagnosis Intractable abdominal pain Labs/Diagnostic Data: Laboratory Results Test 08/23/25 05:08 08/22/25 17:55 08/22/25 14:24 08/22/25 14:07 White Blood Count 7.5 10^3/uL (4.4-10.8) Red Blood Count 3.37 10^6/uL (4.0-5.20) Hemoglobin 10.7 g/dL (12.2-16.2) Hematocrit 31.1 % (36.0-46.0) Mean Corpuscular Volume 92.4 fL (80.0-100.0) Mean Corpuscular Hemoglobin 31.9 pg (28.0-32.0) Mean Corpuscular Hemoglobin Concent 34.5 g/dL (32.0-36.0) Red Cell Distribution Width 12.3 % (11.8-14.3) Platelet Count 311 10^3/uL (140-450) Mean Platelet Volume 7.3 fL (6.9-10.8) Neutrophils (%) (Auto) % (37.0-80.0) Lymphocytes (%) (Auto) % (10.0-50.0) Monocytes (%) (Auto) % (0.0-12.0) Basophils (%) (Auto) % (0.0-2.0) Neutrophils # (Auto) 10 ^3/uL (1.6-8.6) Lymphocytes # (Auto) 10 ^3/uL (0.4-5.4) Monocytes # (Auto) 10 ^3/uL (0-1.3) Differential Total Cells Counted 100.0 (100) Neutrophils % (Manual) 57 (37.0-80.0) Band Neutrophils % (Manual) 2 Lymphocytes % (Manual) 34 (10.0-50.0) Monocytes % (Manual) 6 (0-12) Eosinophils % (Manual) 1 (0-7) Basophils % (Manual) 0 (0.0-2.0) Metamyelocytes % (manual) 0 Myelocytes % (Manual) 0 Promyelocytes % (Manual) 0 Blast Cells % (Manual) 0 Reactive Lymphocytes 0 Smudge Cells 2 /100 WBC Platelet Estimate Adequate Sodium Level 140 mmol/L (136-145) Potassium Level 3.9 mmol/L (3.5-5.1) Chloride Level 106 mmol/L (98-107) Carbon Dioxide Level 24 mmol/L (20-31) Anion Gap 10 (5-15) Blood Urea Nitrogen 13 mg/dL (9-23) Creatinine 0.88 mg/dL (0.550-1.02) Glomerular Filtration Rate Calc 75 mL/min (>90) BUN/Creatinine Ratio 14.8 (10.0-20.0) Serum Glucose 84 mg/dL (74-106) Calcium Level 9.1 mg/dL (8.7-10.4) Total Bilirubin 0.3 mg/dL (0.2-1.0) Aspartate Amino Transferase (AST) 21 U/L (13-40) Alanine Aminotransferase (ALT) 20 U/L (7-40) Alkaline Phosphatase 78 U/L (46-116) Total Protein 6.4 g/dL (5.7-8.2) Albumin 3.8 g/dL (3.2-4.8) Lactic Acid Level 0.5 mmol/L (0.4-2.0) Urine Color Light-yellow (Yellow) Urine Clarity Clear (Clear) Urine pH 5.5 (5.0-9.0) Urine Specific [place] 1.012 (1.001-1.035) Urine Protein 1+ (Negative) Urine Ketones Negative (Negative) Urine Blood 3+ /uL (Negative) Urine Nitrite Negative (Negative) Urine Bilirubin Negative (Negative) Urine Urobilinogen Normal mg/dL (Negative) Urine Leukocyte Esterase 3+ /uL (Negative) Urine RBC 17 /hpf (0 - 4) Urine Microscopic WBC 12 /HPF (0-5) Urine Squamous Epithelial Cells None seen /hpf (<5) Urine Bacteria Few /hpf (None Seen) Urine Mucus Few (None Seen) Urine Glucose Normal mg/dL (Normal) Urine Opiates Screen Neg (NEGATIVE) Urine Fentanyl Screen Neg (NEGATIVE) Urine Barbiturates Screen Neg (NEGATIVE) Urine Phencyclidine Screen Neg (NEGATIVE) Urine Amphetamines Screen Neg (NEGATIVE) Urine Benzodiazepines Screen Neg (NEGATIVE) Urine Cocaine Screen Neg (NEGATIVE) Urine Cannabinoids Screen Pos (NEGATIVE) Eosinophils (%) (Auto) 2.2 % (0.0-7.0) Eosinophils # (Auto) 0.2 10 ^3/uL (0-0.8) Basophils # (Auto) 0.1 10 ^3/uL (0-0.2) Nucleated Red Blood Cells 0.0 % Other Laboratory Tests 08/23/25 05:08 Brief Hx & Hospital Course: History of Present Illness Elana Dee is a 60 year old female with past medical history of nephrolithiasis, anxiety, cervical cancer, schizophrenia, hernia repair, hysterectomy, ectopic surgery, bilateral eye surgery, kidney stent, right foot surgery, nasal surgery, neck tumor removal, and endometriosis who presents to the ED with abdominal pain with dysuria, chills, dizziness, and frequency x3 days. Patient states that she has a right kidney stone and is causing her pain. Patient reports that the pain is 10/10 sharp and constant. Patient states that walking makes it worse and lying down or hot packs makes it better. Patient seen in a wheelchair. Patient reports that she recently came here 1 month ago from [place] to [place]. Patient denies any recent trauma or injury, recent sick contacts, recent ingestion of spoiled food, chest pain, shortness of breath, fever, lightheadedness, weakness, nausea, vomiting, or diarrhea. Course of hospitalization: Urology consultation was placed for evaluation of removal of ureter stent. Patient had stent removed yesterday evening. Urine culture thus far negative. Patient does have some residual abdominal pain, with some improvement. Patient was agreeable to be discharged home and follow up with the PCP in 1-2 weeks. She will be continued on antibiotic therapy with ciprofloxacin 500 mg p.o. b.i.d. as well as provided a prescription for Percocet 5/325 mg every 8 hours as needed for [id number] pain. Patient was agreeable with discharge plan. All questions answered. Physical examination General: Alert and Oriented x3. No acute distress. Well-nourished. Eyes: EOMI. Anicteric. HENT: Moist mucous membranes. Lungs: Clear to auscultation bilaterally. No accessory muscle use. Cardiovascular: Regular rate and rhythm. No murmur. No JVD. Abdomen: Soft, non-tender and non-distended. No palpable masses. Extremities: No edema. Non-tender. Skin: No rashes or lesions. Warm. Neurologic: No focal neurological deficits. CN II-XII grossly intact, but not individually tested. Psychiatric: Cooperative. Appropriate mood and affect. Total time spent with patient discussing and formulating plan of care: 35 minutes. This medical document was created using an electronic medical record system with bubl dictation system. Although this document has been carefully reviewed, there may still be some phonetic and typographical errors. These areas are purely typographical due to imperfections of the software programs, and do not reflect any compromise in the patient's medical care. Consults/Reason for consult Urology: Removal of stent placement Operations or Procedures Cystoscopy with ureter stent removal Condition at Discharge: Fair Final Diagnosis/Problems List Complicated cystitis with left ureter stent -abdominal pain -schizophrenia -anemia Discharge Disposition: Home Discharge Instruct/Medications Diet: Regular Activity: No Restrictions, As Tolerated Follow Up/Referral: Follow up with the PCP in 1-2 weeks Medications: Continue all home medications Ciprofloxacin 500 mg p.o. b.i.d. x7 days Percocet 5/325 q.8 hours as needed for [id number] pain Scheduled Ciprofloxacin Hydrochloride (Ciprofloxacin HCl), 500 MG PO BID Clonazepam (KlonoPIN TABLET), 1 TAB PO TID, (Reported) Oxycodone W/ Acetaminophen (Percocet 5/325MG), 1 TAB PO TID Ziprasidone Hydrochloride (Geodon), 1 CAP PO DAILY, (Reported) 36 Discharge Statement: "Patient was advised to return to the ER or call 911 if any headaches, dizziness, shortness of breath, chest pain, abdominal pain, bleeding, fevers, or worsening of medical condition. Patient was counseled about treatment plan, medications, possible side effects, patientverbalized understanding. All questions were answered to the best of my ability. This discharge took greater then 30 minutes in planning, reviewing documentation, counseling the patient, and discussing with other team members." ASSESSMENT ASSESSMENT Assessment Complicated cystitis with left ureter stent Date of Service: Aug 24, 2025 Billing Provider: EVELIN POWELL NP Common Visit Codes: 78448-RSN/OBS DISCH DAY >30min EVELIN POWELL NP Aug 24, 2025 10:36
[2025-08-24] MEDS: ARTIFICIAL TEARS 15ml EACHEYE PRN (10:37)
== END 2025-08-24 18:15 | disposition home or self-care (01) | DRG 463 ==
LOC: ER 13:09 → OVERFLOW 16:35 → EAST 08-23 18:11
PROVIDERS: ADMIT Nurse Practitioner Acute Care; ATTEND Nurse Practitioner Acute Care
PROC: 0TP98DZ Removal of Intraluminal Device from Ureter, Via Natural or Artificial Opening Endoscopic (ICD-10-PCS; principal; 2025-08-23 20:18)
DX: N30.90 Cystitis, unspecified without hematuria (principal); D64.9 Anemia, unspecified; F41.9 Anxiety disorder, unspecified; F20.9 Schizophrenia, unspecified; T19.8XXA Foreign body in other parts of genitourinary tract, initial encounter; N20.2 Calculus of kidney with calculus of ureter; Z90.710 Acquired absence of both cervix and uterus; Z85.41 Personal history of malignant neoplasm of cervix uteri; W44.8XXA Other foreign body entering into or through a natural orifice, initial encounter; Z79.899 Other long term (current) drug therapy
CPT/HCPCS: 36415; 74176; 80048; 80053; 80307; 81001; 83605; 85007; 85025; 85027; 87040; 87086; G0378; J1100; J1885; J2250; J2704

== ENCOUNTER 2025-09-06 05:56 | Emergency (ER) | payer MEDICAID ==
[~2025-09-06] VITALS: Ht 165.1 cm; Wt 64.0 kg
[~2025-09-06 05:56] MED LIST changes: -CEFD300C2 PO; +CIP500T PO; -GABA300T4 PO; -LINA145C PO
--- NOTE | 2025-09-06 07:16 | ED.PDOC ---
History of Present Illness HPI Comments 60-year-old female presents to the ER with a prior medical history of anxiety, cervical cancer, kidney stone, schizophrenia: Surgical history of hernia repair, hysterectomy, ectopic surgery, right foot surgery, bilateral eye surgery, kidney stent and a chief complaint of the abdominal pain. Reports on having tenderness in abdominal distention associated with diffuse abdominal pain. Patient reports on being admitted in the hospital two weeks ago for 3-4 days. Denies any other symptoms at this time. Denies chills, fever, N/V/D, SOB, CP. No other associated symptoms, modifiers, recent injuries or sick contacts present at this time. Chief Complaint: Abdominal Pain Time Seen by MD: 07:15 Reviewed Notes: Nurses Notes, Medications, Allergies Allergies: Coded Allergies: NO KNOWN ALLERGIES (Unverified , 08/02/25) Home Meds Active Scripts Oxycodone W/ Acetaminophen (Percocet 5/325MG) 1 Tab Tb, 1 TAB PO TID for 5 Days, #15 TAB Prov:EVELIN POWELL CONVERTING TECHNICIAN 08/24/25 Ciprofloxacin Hydrochloride (Ciprofloxacin HCl) 500 Mg Tab, 500 MG PO BID for 7 Days, #14 TAB Prov:EVELIN POWELL CONVERTING TECHNICIAN 08/24/25 Reported Medications Clonazepam (KlonoPIN TABLET) 0.5 Mg Tb, 1 TAB PO TID, #90 TAB 08/02/25 Ziprasidone Hydrochloride (Geodon) 80 Mg Cap, 1 CAP PO DAILY, #60 CAP 1 Refill 08/02/25 Information Source: Patient Mode of Arrival: Ambulatory Severity: Moderate Timing: Came on: Gradually Duration: Since onset Prehospital treatment: None Past Medical History PAST MEDICAL HISTORY: Anxiety, Cancer (Cervical), Kidney Stones, Schizophrenia Surgical History: Hernia Repair, Hysterectomy Surgical History (Other): Ectopic surgery, bilateral eye surgery, right foot surgery, kidney stone BEHAVIOR SUPPORT SPECIALIST History: Denies all BEHAVIOR SUPPORT SPECIALIST Hx Family History Family History: Reviewed,noncontributory to illness, Unknown Social History Smoker: Unknown Alcohol: Unknown Drugs: Unknown Lives In: Home Constitutional: denies: chills, diaphoresis, fatigue, fever, malaise, sweats, weakness, others EENTM: denies: blurred vision, double vision, ear bleeding, ear discharge, ear drainage, ear pain, ear ringing, eye pain, eye redness, hearing loss, mouth pain, mouth swelling, nasal discharge, nose bleeding, nose congestion, nose pain, photophobia, tearing, throat pain, throat swelling, voice changes, others Respiratory: denies: cough, hemoptysis, orthopnea, SOB at rest, shortness of breath, SOB with excertion, stridor, wheezing, others Cardiovascular: denies: chest pain, dizzy spells, diaphoresis, Dyspnea on exertion, edema, irregular heart beat, left arm pain, lightheadedness, palpitations, PND, syncope, others Gastrointestinal: reports: abdomen distended, abdominal pain; denies: blood streaked bowels, constipated, diarrhea, dysphagia, difficulty swallowing, hematemesis, melena, nausea, poor appetite, poor fluid intake, rectal bleeding, rectal pain, vomiting, others Genitourinary: denies: abnormal vagina bleeding, burning, dyspareunia, dysuria, flank pain, frequency, hematuria, incontinence, pain, , vagina discharge, urgency, others Neurological: denies: dizziness, fainting, headache, left sided numbness, left sided weakness, numbness, paresthesia, pre-existing deficit, right sided numbness, right sided weakness, seizure, speech problems, tingling, tremors, weakness, others Musculoskeletal: denies: back pain, gout, joint pain, joint swelling, muscle pain, muscle stiffness, neck pain, others Integumetry: denies: bruises, change in color, change in hair/nails, dryness, laceration, lesions, lumps, rash, wounds, others Allergic/Immunocompromised: denies: Difficulty Healing, Frequent Infections, Hives, Itching, others Hematologic/Lymphatic: denies: anemia, blood clots, easy bleeding, easy bruising, swollen glands, others Endocrine: denies: excessive hunger, excessive sweating, excessive thirst, excessive urination, flushing, intolerance to cold, intolerance to heat, unexplained weight gain, unexplained weight loss, others Psychiatric: denies: anxiety, bipolar disorder, depression, hopeless, panic disorder, schizophrenia, sleepless, suicidal, others All Other Systems: Reviewed and Negative Physical Exam General Appearance: Moderate Distress, Normal HEENT: Normal ENT Inspection, Pharynx Normal, TMs Normal Neck: Full Range of Motion, Non-Tender, Normal, Normal Inspection Respiratory: Chest Non-Tender, Lungs Clear, No Accessory Muscle Use, No Respiratory Distress, Normal Breath Sounds Cardiovascular: No Edema, No JVD, No Murmur, No Gallop, Normal Peripheral Pulses, Regular Rate/Rhythm Breast Exam: Deferred Gastrointestinal: No Organomegaly, Non Tender, No Pulsatile Mass, Normal Bowel Sounds, Soft Genitalia: Deferred Pelvic: Deferred Rectal: Deferred Extremities: No calf tenderness, Normal capillary refill, Normal inspection, Normal range of motion, Non-tender, No pedal edema Musculoskeletal : Apperance: Normal Neurologic: Alert, door liner helper II-XII nml as Tested, No Motor Deficits, Normal Affect, Normal Mood, No Sensory Deficits Cerebellar Function: Normal Reflexes: Normal Skin: Dry, Normal Color, Warm Peripheral Pulses: 3+ Radial (R), 3+ Radial (L) Lymphatic: No Adenopathy Was a procedure done? Was a procedure done?: No Differential Dx Considerations may include: Anemia Electrolyte imbalance X-Ray, Labs, Meds, VS Vital Signs Date Time Temp Pulse Resp B/P (MAP) Pulse Ox O2 Delivery O2 Flow Rate FiO2 09/06/25 07:39 62 16 95/64 (74) 100 09/06/25 07:39 61 18 100 Room Air 09/06/25 05:59 97.6 75 16 116/85 97 97.6 Lab Test 09/06/25 07:27 09/06/25 06:50 Range/Units White Blood Count 6.7 4.4-10.8 10^3/uL Red Blood Count 3.82 L 4.0-5.20 10^6/uL Hemoglobin 12.0 L 12.2-16.2 g/dL Hematocrit 35.6 L 36.0-46.0 % Mean Corpuscular Volume 93.4 80.0-100.0 fL Mean Corpuscular Hemoglobin 31.4 28.0-32.0 pg Mean Corpuscular Hemoglobin Concent 33.7 32.0-36.0 g/dL Red Cell Distribution Width 12.6 11.8-14.3 % Platelet Count 253 140-450 10^3/uL Mean Platelet Volume 7.2 6.9-10.8 fL Neutrophils (%) (Auto) 42.5 37.0-80.0 % Lymphocytes (%) (Auto) 46.4 10.0-50.0 % Monocytes (%) (Auto) 7.0 0.0-12.0 % Eosinophils (%) (Auto) 3.4 0.0-7.0 % Basophils (%) (Auto) 0.7 0.0-2.0 % Neutrophils # (Auto) 2.9 1.6-8.6 10 ^3/uL Lymphocytes # (Auto) 3.1 0.4-5.4 10 ^3/uL Monocytes # (Auto) 0.5 0-1.3 10 ^3/uL Eosinophils # (Auto) 0.2 0-0.8 10 ^3/uL Basophils # (Auto) 0 0-0.2 10 ^3/uL Nucleated Red Blood Cells 0.1 % Sodium Level Pending Potassium Level Pending Chloride Level Pending Carbon Dioxide Level Pending Anion Gap Pending Blood Urea Nitrogen Pending Creatinine Pending Glomerular Filtration Rate Calc Pending BUN/Creatinine Ratio Pending Serum Glucose Pending Calcium Level Pending Urine Color Pending Urine Clarity Pending Urine pH Pending Urine Specific [place] Pending Urine Protein Pending Urine Ketones Pending Urine Blood Pending Urine Nitrite Pending Urine Bilirubin Pending Urine Urobilinogen Pending Urine Leukocyte Esterase Pending Urine RBC Pending Urine Microscopic WBC Pending Urine Squamous Epithelial Cells Pending Urine Bacteria Pending Urine Glucose Pending Patient alert. Complaining of abdominal discomfort. Vitals stable. Answering questions. Has been here many times for the same symptom. WBC within normal limits. Heart rate within normal limits. Saturation pristine. Abdomen is soft nontender. No acute process. Reviewed her previous visit. Explained to the patient. Was told to follow up with her primary care physician. Was told to come back if there is any problem. Time of 1ST Reevaluation: 07:45 Reevaluation 1ST: Unchanged Patient Education/Counseling: Diagnosis, Treatment, Prognosis Family Education/Counseling: No Family Present SEPSIS Sepsis Screen Date sepsis recognized/suspect: Sep 06, 2025 Time Sepsis recognized/suspect: 06 Recent Procedure: No On Antibiotic Therapy: No Respiratory Rate >20: No Heart Rate >90: No Temp<36 C (96.8 F) or >38.3 C: No SBP <90 or MAP <65 mmHG: No New Acute Mental Status Change: No Is the patient on CPAP, BIPAP,: No Physician Orders Urinalysis (09/06/25 06:39) Basic Metabolic Panel (09/06/25 06:39) Vital Signs Date Time Temp Pulse Resp B/P (MAP) Pulse Ox O2 Delivery O2 Flow Rate FiO2 09/06/25 07:39 62 16 95/64 (74) 100 09/06/25 07:39 61 18 100 Room Air 09/06/25 05:59 97.6 75 16 116/85 97 97.6 Laboratory Tests Test 09/06/25 07:27 White Blood Count 6.7 10^3/uL (4.4-10.8) Departure 1 Departure Time of Disposition: 07:54 Impression: Primary Impression: Constipation Qualified Codes: K59.01 - Slow transit constipation Disposition: HOME / SELF CARE / HOMELESS Condition: Good Discharged With: Self Critical Care Note Critical Care Time?: No Stability Stability form required: No Heart Score Heart Score: Heart Score Response (Comments) Value History N/A 0 EKG N/A 0 Age N/A 0 Risk Factors N/A 0 Troponin N/A 0 Total 0 I personally scribed for VIANCA MCCOY MD ([email or web address]) on 09/06/25 at 07:16. Electronically submitted by Richard Charlton ([email or web address]). VIANCA MCCOY MD Sep 06, 2025 07:16
[2025-09-06 07:46] LABS: Hematocrit 35.6 % (36.0-46.0); Hemoglobin 12.0 g/dL (12.2-16.2); Mean Corpuscular Hemoglobin 31.4 pg (28.0-32.0); Mean Corpuscular Volume 93.4 fL (80.0-100.0); Nucleated Red Blood Cells % 0.1 %
[2025-09-06 07:52] LABS: Urine Protein, UAD Negative (Negative)
[2025-09-06 07:53] LABS: Chloride 106 mmol/L (98-107); Potassium 3.6 mmol/L (3.5-5.1); Sodium 142 mmol/L (136-145)
[2025-09-06 07:54] LABS: Anion Gap 9 (5-15); Carbon Dioxide 27 mmol/L (20-31)
[2025-09-06 07:55] LABS: Calcium 9.5 mg/dL (8.7-10.4)
[2025-09-06 07:59] LABS: Glucose 84 mg/dL (74-106)
[2025-09-06 08:00] LABS: BUN/Creatinine Ratio 11.1 (10.0-20.0); Blood Urea Nitrogen 10 mg/dL (9-23)
[2025-09-06] MEDS: SODIUM CHLORIDE 0.9% 1,000 ML IV ONE (08:23)
[2025-09-06 09:10] VITALS: BP 132/67; PULSE 76; RESP 18; TEMP 97.6; O2SAT 99
== END 2025-09-06 09:16 | disposition home or self-care (01) ==
LOC: ER 05:56
DX: K59.00 Constipation, unspecified (principal); F41.9 Anxiety disorder, unspecified; F20.9 Schizophrenia, unspecified; Z90.710 Acquired absence of both cervix and uterus; Z98.890 Other specified postprocedural states; Z79.899 Other long term (current) drug therapy
CPT/HCPCS: 36415; 80048; 81001; 85025; 96360; 99283; J7030

== ENCOUNTER 2025-09-28 19:16 | Emergency (ER) | payer MEDICAID ==
[~2025-09-28] VITALS: Ht 165.1 cm; Wt 63.0 kg
--- NOTE | 2025-09-28 19:38 | ED.PDOC ---
Psychiatric HPI Comments 60 y/o F, BIBA, with PMHx of schizophrenia and bipolar disorder presents to the ED for CC of anxiety. EMS reports, patient is coming from home where she c/o anxiety following stopping her Clonazepam x24 days ago. Patient states, she stopped medication d/t having frequent constipation and because "it causes heart issues". Upon arrival to the ED, patient is A&Ox4 and is answering questions appropriately. Patient denies auditory hallucinations, visual hallucinations, homicidal ideation, or suicidal ideation. No other symptoms or modifying factors are present at this time. Chief Complaint: Anxiety Time Seen by MD: 19:30 Reviewed Notes: Nurses Notes, Back Shoe Cutter Notes, Medications, Allergies Information Source: Patient, Emergency Med Personnel Mode of Arrival: EMS Severity of Pain: None Severity of Mental Status: Moderate Severity of Symptoms: Moderate Timing: Days Duration: Since onset Prehospital treatment: None Presents with: Anxiety History of: Anxiety, Schizophrenia, Bipolar Quality: None Associated signs and symptoms: Anxiety Past Medical History PAST MEDICAL HISTORY: Anxiety, Cancer, Kidney Stones, Schizophrenia Surgical History: Hernia Repair, Hysterectomy BEHAVIOR SUPPORT SPECIALIST History: Denies all BEHAVIOR SUPPORT SPECIALIST Hx Family History Family History: Reviewed,noncontributory to illness, Unknown Social History Smoker: Unknown Alcohol: Unknown Drugs: Unknown Lives In: Home Constitutional: denies: chills, diaphoresis, fatigue, fever, malaise, sweats, weakness, others EENTM: denies: blurred vision, double vision, ear bleeding, ear discharge, ear drainage, ear pain, ear ringing, eye pain, eye redness, hearing loss, mouth pain, mouth swelling, nasal discharge, nose bleeding, nose congestion, nose pain, photophobia, tearing, throat pain, throat swelling, voice changes, others Respiratory: denies: cough, hemoptysis, orthopnea, SOB at rest, shortness of breath, SOB with excertion, stridor, wheezing, others Cardiovascular: denies: chest pain, dizzy spells, diaphoresis, Dyspnea on exertion, edema, irregular heart beat, left arm pain, lightheadedness, palpitations, PND, syncope, others Gastrointestinal: denies: abdomen distended, abdominal pain, blood streaked bowels, constipated, diarrhea, dysphagia, difficulty swallowing, hematemesis, melena, nausea, poor appetite, poor fluid intake, rectal bleeding, rectal pain, vomiting, others Genitourinary: denies: abnormal vagina bleeding, burning, dyspareunia, dysuria, flank pain, frequency, hematuria, incontinence, pain, , vagina discharge, urgency, others Neurological: denies: dizziness, fainting, headache, left sided numbness, left sided weakness, numbness, paresthesia, pre-existing deficit, right sided numbness, right sided weakness, seizure, speech problems, tingling, tremors, weakness, others Musculoskeletal: denies: back pain, gout, joint pain, joint swelling, muscle pain, muscle stiffness, neck pain, others Integumetry: denies: bruises, change in color, change in hair/nails, dryness, laceration, lesions, lumps, rash, wounds, others Allergic/Immunocompromised: denies: Difficulty Healing, Frequent Infections, Hives, Itching, others Hematologic/Lymphatic: denies: anemia, blood clots, easy bleeding, easy bruising, swollen glands, others Endocrine: denies: excessive hunger, excessive sweating, excessive thirst, excessive urination, flushing, intolerance to cold, intolerance to heat, unexp lained weight gain, unexplained weight loss, others Psychiatric: reports: anxiety; denies: bipolar disorder, depression, hopeless, panic disorder, schizophrenia, sleepless, suicidal, others All Other Systems: Reviewed and Negative Physical Exam General Appearance: No Apparent Distress, Normal, Other (anxious appearing) HEENT: Normal ENT Inspection, Pharynx Normal Neck: Full Range of Motion, Non-Tender, Normal, Normal Inspection Respiratory: Chest Non-Tender, Lungs Clear, No Accessory Muscle Use, No Respiratory Distress, Normal Breath Sounds Cardiovascular: No Edema, No Murmur, No Gallop, Normal Peripheral Pulses, Regular Rate/Rhythm Breast Exam: Deferred Gastrointestinal: No Organomegaly, Non Tender, No Pulsatile Mass, Normal Bowel Sounds, Soft Genitalia: Deferred Pelvic: Deferred Rectal: Deferred Extremities: No calf tenderness, Normal capillary refill, Normal inspection, Normal range of motion, Non-tender, No pedal edema Musculoskeletal : Apperance: Normal Neurologic: Alert, classroom coordinator II-XII nml as Tested, No Motor Deficits, Normal Affect, Normal Mood, No Sensory Deficits Cerebellar Function: Normal Reflexes: Normal Skin: Dry, Normal Color, Warm Lymphatic: No Adenopathy Was a procedure done? Was a procedure done?: No Psych Differential Dx Psych. Differential Dx: Anxiety, Bipolar Disorder, Depression OD Differential Dx: Drug Overdose, Schizophrenia X-Ray, Labs, Meds, VS Vital Signs Date Time Temp Pulse Resp B/P (MAP) Pulse Ox O2 Delivery O2 Flow Rate FiO2 09/28/25 19:16 97.8 82 20 130/87 100 97.8 Lab Test 09/28/25 19:54 Range/Units White Blood Count 8.9 4.4-10.8 10^3/uL Red Blood Count 3.78 L 4.0-5.20 10^6/uL Hemoglobin 11.9 L 12.2-16.2 g/dL Hematocrit 34.9 L 36.0-46.0 % Mean Corpuscular Volume 92.4 80.0-100.0 fL Mean Corpuscular Hemoglobin 31.5 28.0-32.0 pg Mean Corpuscular Hemoglobin Concent 34.1 32.0-36.0 g/dL Red Cell Distribution Width 12.4 11.8-14.3 % Platelet Count 307 140-450 10^3/uL Mean Platelet Volume 7.4 6.9-10.8 fL Neutrophils (%) (Auto) 68.9 37.0-80.0 % Lymphocytes (%) (Auto) 22.8 10.0-50.0 % Monocytes (%) (Auto) 7.6 0.0-12.0 % Eosinophils (%) (Auto) 0.3 0.0-7.0 % Basophils (%) (Auto) 0.4 0.0-2.0 % Neutrophils # (Auto) 6.1 1.6-8.6 10 ^3/uL Lymphocytes # (Auto) 2.0 0.4-5.4 10 ^3/uL Monocytes # (Auto) 0.7 0-1.3 10 ^3/uL Eosinophils # (Auto) 0 0-0.8 10 ^3/uL Basophils # (Auto) 0 0-0.2 10 ^3/uL Nucleated Red Blood Cells 0.0 % Sodium Level Pending Potassium Level Pending Chloride Level Pending Carbon Dioxide Level Pending Anion Gap Pending Blood Urea Nitrogen Pending Creatinine Pending Glomerular Filtration Rate Calc Pending BUN/Creatinine Ratio Pending Serum Glucose Pending Calcium Level Pending X-Ray, Labs, Meds, VS Comment Imaging was reviewed by this provider, there is no obvious pathological or acute disease process. Pending radiology review Labs were reviewed by this provider, no abnormalities Vital signs reviewed by this provider, clinically stable Time of 1ST Reevaluation: 20:00 Reevaluation 1ST: Unchanged Patient Education/Counseling: Diagnosis, Treatment, Need For Follow Up (Follow up with PCP next available appointment. Return to the emergency department if symptoms worsen.) Family Education/Counseling: No Family Present Departure 1 Departure Time of Disposition: 20:55 Impression: Primary Impression: Anxiety Additional Impression: Schizophrenia Qualified Codes: F20.0 - Paranoid schizophrenia Disposition: 01 HOME / SELF CARE / HOMELESS Condition: Stable Discharged With: Self Critical Care Note Critical Care Time?: No Stability Stability form required: No Heart Score Heart Score: Heart Score Response (Comments) Value History N/A 0 EKG N/A 0 Age N/A 0 Risk Factors N/A 0 Troponin N/A 0 Total 0 I personally scribed for JULITA HARTMAN ([email or web address]) on 09/28/25 at 19:38. Electronically submitted by Tete Weaver ([email or web address]). JULITA HARTMAN Sep 28, 2025 19:38
[2025-09-28 20:08] LABS: Hematocrit 34.9 % (36.0-46.0); Hemoglobin 11.9 g/dL (12.2-16.2); Mean Corpuscular Hemoglobin 31.5 pg (28.0-32.0); Mean Corpuscular Volume 92.4 fL (80.0-100.0); Nucleated Red Blood Cells % 0.0 %
[2025-09-28 20:16] LABS: Chloride 104 mmol/L (98-107); Potassium 3.7 mmol/L (3.5-5.1); Sodium 139 mmol/L (136-145)
[2025-09-28 20:17] LABS: Anion Gap 11 (5-15); Calcium 9.7 mg/dL (8.7-10.4); Carbon Dioxide 24 mmol/L (20-31)
[2025-09-28 20:22] LABS: BUN/Creatinine Ratio 10.7 (10.0-20.0)
[2025-09-28 21:04] LABS: Blood Urea Nitrogen 9 mg/dL (9-23); Glucose 131 mg/dL (74-106)
[2025-09-28 21:28] VITALS: BP 130/86; PULSE 79; RESP 20; TEMP 98.1; O2SAT 96
[2025-09-28] MEDS: LORazepam 2MG/ML-1ML VIAL IM ONE (21:48)
--- NOTE | 2025-09-29 00:48 | ECG ---
[facility] Test Date: 2025-09-28 Test Time: 19:25:42 Pat Name: ARABELLA ASHFORD Department: ED Room: Gender: F Venetian Blind Machine Operator: YESSENIA : 1965 Requested By: JULITA SANTIAGO* Order Number: [id number] Reading MD: Mitesh Diego Measurements Intervals [place] Rate: 82 P: 15 PA: 155 QRS: 28 QRSD: 106 T: 18 QT: 365 QTc: 427 Interpretive Statements Sinus rhythm Abnormal R-wave progression, early transition Electronically Signed On 09-29-2025 9:09:58 PST by Mitesh Diego Please click the below link to view image of tracing.
== END 2025-09-28 22:16 | disposition home or self-care (01) ==
LOC: EDBD 19:16 → ER 19:16
DX: F41.9 Anxiety disorder, unspecified (principal); F20.9 Schizophrenia, unspecified; F31.9 Bipolar disorder, unspecified; Z98.890 Other specified postprocedural states; Z90.710 Acquired absence of both cervix and uterus; Z87.442 Personal history of urinary calculi
CPT/HCPCS: 36415; 80048; 85025; 93005

== ENCOUNTER 2025-11-07 12:46 | Emergency (ER) | payer MEDICAID ==
[~2025-11-07] VITALS: Ht 167.6 cm; Wt 62.9 kg
--- NOTE | 2025-11-07 13:23 | ED.PDOC ---
Musculoskeletal HPI Comments 60 year old female with PMHx Schizophrenia presents to the ED with a chief complaint of RT lower extremity pain. Patient states she went to see her Site Promotion Agent, Dr. Collins, was recommended to come to ED to be admitted, for removal of hardware in RT foot. Patient states she is also experiencing fungus of toenails on RT foot, RT 2nd digit. Denies fever, chills, nausea, vomiting, diarrhea, headache, dizziness, chest pain, shortness of breath. No other symptoms or modifying factors present at this time. Chief Complaint: Lower Extremity Time Seen by MD: 13:35 Reviewed Notes: Medications, Allergies Allergies: Coded Allergies: NO KNOWN ALLERGIES (Unverified , 08/02/25) Home Meds Active Scripts Oxycodone W/ Acetaminophen (Percocet 5/325MG) 1 Tab Tb, 1 TAB PO TID for 5 Days, #15 TAB Prov:EVELIN POWELL POLICE ARTIST 08/24/25 Ciprofloxacin Hydrochloride (Ciprofloxacin HCl) 500 Mg Tab, 500 MG PO BID for 7 Days, #14 TAB Prov:EVELIN POWELL POLICE ARTIST 08/24/25 Reported Medications Clonazepam (KlonoPIN TABLET) 0.5 Mg Tb, 1 TAB PO TID, #90 TAB 08/02/25 Ziprasidone Hydrochloride (Geodon) 80 Mg Cap, 1 CAP PO DAILY, #60 CAP 1 Refill 08/02/25 Information Source: Patient Mode of Arrival: Ambulatory Location: Right Timing: Days Prehospital treatment: None Past Medical History PAST MEDICAL HISTORY: Anxiety, Cancer, Kidney Stones, Schizophrenia Surgical History: Hernia Repair, Hysterectomy CLAM TREADER History: Denies all CLAM TREADER Hx Family History Family History: Reviewed,noncontributory to illness, Unknown Social History Smoker: Unknown Alcohol: Unknown Drugs: Unknown Lives In: Home Constitutional: denies: chills, diaphoresis, fatigue, fever, malaise, sweats, weakness, others EENTM: denies: blurred vision, double vision, ear bleeding, ear discharge, ear drainage, ear pain, ear ringing, eye pain, eye redness, hearing loss, mouth pain, mouth swelling, nasal discharge, nose bleeding, nose congestion, nose pain, photophobia, tearing, throat pain, throat swelling, voice changes, others Respiratory: denies: cough, hemoptysis, orthopnea, SOB at rest, shortness of breath, SOB with excertion, stridor, wheezing, others Cardiovascular: denies: chest pain, dizzy spells, diaphoresis, Dyspnea on exertion, edema, irregular heart beat, left arm pain, lightheadedness, palpitations, PND, syncope, others Gastrointestinal: denies: abdomen distended, abdominal pain, blood streaked bowels, constipated, diarrhea, dysphagia, difficulty swallowing, hematemesis, melena, nausea, poor appetite, poor fluid intake, rectal bleeding, rectal pain, vomiting, others Genitourinary: denies: abnormal vagina bleeding, burning, dyspareunia, dysuria, flank pain, frequency, hematuria, incontinence, pain, , vagina discharge, urgency, others Neurological: denies: dizziness, fainting, headache, left sided numbness, left sided weakness, numbness, paresthesia, pre-existing deficit, right sided numbness, right sided weakness, seizure, speech problems, tingling, tremors, weakness, others Musculoskeletal: reports: others (RLE pain, RT toes fungal); denies: back pain, gout, joint pain, joint swelling, muscle pain, muscle stiffness, neck pain Integumetry: denies: bruises, change in color, change in hair/nails, dryness, laceration, lesions, lumps, rash, wounds, others Allergic/Immunocompromised: denies: Difficulty Healing, Frequent Infections, Hives, Itching, others Hematologic/Lymphatic: denies: anemia, blood clots, easy bleeding, easy bruising, swollen glands, others Endocrine: denies: excessive hunger, excessive sweating, excessive thirst, excessive urination, flushing, intolerance to cold, intolerance to heat, unexplained weight gain, unexplained weight loss, others Psychiatric: denies: anxiety, bipolar disorder, depression, hopeless, panic disorder, schizophrenia, sleepless, suicidal, others All Other Systems: Reviewed and Negative Physical Exam General Appearance: Moderate Distress, Normal HEENT: Normal ENT Inspection, Pharynx Normal, TMs Normal Neck: Full Range of Motion, Non-Tender, Normal, Normal Inspection Respiratory: Chest Non-Tender, Lungs Clear, No Accessory Muscle Use, No Respiratory Distress, Normal Breath Sounds Cardiovascular: No Edema, No JVD, No Murmur, No Gallop, Normal Peripheral Pulses, Regular Rate/Rhythm Breast Exam: Deferred Gastrointestinal: No Organomegaly, Non Tender, No Pulsatile Mass, Normal Bowel Sounds, Soft Genitalia: Deferred Pelvic: Deferred Rectal: Deferred Extremities: No calf tenderness, Normal capillary refill, Normal inspection, Normal range of motion, Non-tender, No pedal edema Musculoskeletal : Apperance: Normal Neurologic: Alert, browning processor II-XII nml as Tested, No Motor Deficits, Normal Affect, Normal Mood, No Sensory Deficits Cerebellar Function: Normal Reflexes: Normal Skin: Dry, Normal Color, Warm Peripheral Pulses: 3+ Radial (R), 3+ Radial (L) Lymphatic: No Adenopathy Was a procedure done? Was a procedure done?: No Differential Diagnosis EXT Differential Diagnosis: Sprain, Strain X-Ray, Labs, Meds, VS Vital Signs Date Time Temp Pulse Resp B/P (MAP) Pulse Ox O2 Delivery O2 Flow Rate FiO2 11/07/25 12:48 97.5 82 16 144/96 98 97.5 Patient alert. Came in because red spot on the finger. Vitals stable. Answering questions. She is comfortable. No neurological deficits. Mentating well. No acute process. Was given prescription of Keflex antibiotic. Was told to follow up with her primary care physician. Was told to come back if there is any problem. Time of 1ST Reevaluation: 14:05 Reevaluation 1ST: Unchanged Patient Education/Counseling: Diagnosis, Treatment, Prognosis Family Education/Counseling: No Family Present Departure 1 Departure Time of Disposition: 13:56 Impression: Primary Impression: Cellulitis Qualified Codes: L03.113 - Cellulitis of right upper limb Additional Impression: Anxiety Disposition: 01 HOME / SELF CARE / HOMELESS Condition: Good e-Prescriptions Cephalexin (KEFLEX CAPSULE) 250 Mg Cp 250 MG PO TID for 5 Days, #15 BOTTLE Prov: VIANCA MCCOY MD 11/07/25 Discharged With: Self Critical Care Note Critical Care Time?: No Stability Stability form required: No Heart Score Heart Score: Heart Score Response (Comments) Value History N/A 0 EKG N/A 0 Age N/A 0 Risk Factors N/A 0 Troponin N/A 0 Total 0 I personally scribed for VIANCA MCCOY MD ([email or web address]) on 11/07/25 at 13:23. Electronically submitted by Sangeeta Sibley ([email or web address]). I personally scribed for VIANCA MCCOY MD ([email or web address]) on 11/07/25 at 13:42. Electronically submitted by Sangeeta Sibley ([email or web address]). VIANCA MCCOY MD Nov 07, 2025 13:23
[2025-11-07] MEDS ORDERED: CEPH250C PO (13:57)
[2025-11-07 15:34] VITALS: BP 140/88; PULSE 79; RESP 18; TEMP 97.6; O2SAT 98
== END 2025-11-07 15:33 | disposition home or self-care (01) ==
LOC: ER 12:46
DX: L03.113 Cellulitis of right upper limb (principal); F41.9 Anxiety disorder, unspecified; F17.200 Nicotine dependence, unspecified, uncomplicated; F20.9 Schizophrenia, unspecified; Z79.899 Other long term (current) drug therapy; Z87.442 Personal history of urinary calculi; Z90.710 Acquired absence of both cervix and uterus; Z98.890 Other specified postprocedural states